=== PATIENT | male | born 1945 | race Caucasian/White ===

== ENCOUNTER 2017-09-07 09:07 | Day surgery (SDC) | payer MEDICARE, OTHER ==
[~2017-09-07 09:07] MED LIST: DIPHENHYDRAMINE HCL 50 MG/ML VIAL ONE; EPINEPHRINE INJ 1 MG/10 ML DISP.SYRIN ONE; FLUMAZENIL INJ 0.5 MG/5 ML VIAL ONE; GLUCAGON,HUMAN RECOMB 1 MG INJ ONE; NALOXONE HCL INJ/PF 0.4 MG/1 ML SDV ONE; ONDANSETRON HCL INJ/PF 4 MG/2 ML SDV ONE
[2017-09-07] MEDS: MIDAZOLAM 2 MG/2 ML INJ ONE ×6 (10:21→10:49)
[2017-09-07] MEDS: FENTANYL CITRATE INJ/PF 100 MCG/2 ML AMPUL ONE ×3 (10:23→10:40)
--- NOTE | 2017-09-07 11:04 | Discharge Summary ---
Discharge Summary (SDC) - Discharge Final Diagnosis: Normal colonoscopy Date of Surgery: 09/07/17 Discharge Date: 09/07/17 Condition: Good Treatment or Instructions: [facility] [place] [id number] POST ENDOSCOPY DISCHARGE INSTRUCTIONS 1. Diet: Start clear liquids that a regular diet as tolerated. 2. Resume all preoperative medications. All oral anticoagulants and aspirins can be resumed 24 hours after procedure. 3. If a polypectomy was performed some bleeding per rectum may occur. This should stop within 3 days. If not, please contact the office. 4. If you had a colonoscopy you may experience some bloating and delayed return of normal bowel function for several days, your regular bowel movement pattern should resume within a week. 5. Please contact [facility] at to make an appointment with Dr. Pop for 1 to 3 weeks following procedure. 6. If you have any questions or concerns regarding your care,treatment plan or follow up, please contact our office. 7. Per clinical guidelines we recommend you undergo a repeat colonoscopy in 10 years. Referrals: YAHIR GARCIA MD [Primary Care Provider] - Discharge Diet: As Tolerated Discharge Activity: Activity As Tolerated Home Care Assistance: None Needed Report the Following to Your Physician Immediately: Shortness of Breath, Increase in Pain, Fever over 101 Degrees
--- NOTE | 2017-09-07 11:06 | Operative Report ---
Operative Report DATE OF SURGERY: 09/07/17 PREOPERATIVE DIAGNOSIS: History of heme positive stool POSTOPERATIVE DIAGNOSIS: Normal: OPERATION: Total colonoscopy to cecum with photodocumentation SURGEON: PAT VAZQUEZ ANESTHESIA: Moderate Sedation TISSUE REMOVED OR ALTERED: None COMPLICATIONS: None ESTIMATED BLOOD LOSS: None INTRAOPERATIVE FINDINGS: See below PROCEDURE: Obtaining informed consent the patient was taken from the preoperative holding area to the main endoscopy suite where monitoring devices were attached to the patient. Plan and surgical timeout were conducted The patient was placed in the left lateral decubitus position with knees to chest. A perianal examination was performed. There was no visible or palpable anorectal pathology. Sphincter tone was felt to be normal. The flexible adult colonoscope was advanced through the anal rectal canal, all the way to the cecum. Visualization of the cecum was achieved and the ileocecal valve, the appendiceal orifice and transillumination of the anterior abdominal wall. This was an excellent study on the well-prepped bowel. The colonoscope was withdrawn slowly and methodically checked and the mucosa carefully. There was no evidence of tumor, stricture, bleeding or polyp. There was no evidence of diverticuloses. The scope was slowly withdrawn through the anal rectal canal. Complete visualization of the rectum was achieved with photodocumentation. The scope was withdrawn to the patient's anus. The patient tolerated the procedure well and was taken to the recovery area in stable condition. Screening guidelines, patient be an appropriate candidate for follow-up colonoscopy in 10 years, or sooner if symptoms develop.
[2017-09-07 12:41] VITALS: BP 121/80
== END 2017-09-07 12:10 | disposition home or self-care (01) ==
LOC: END 09:07
PROVIDERS: ATTEND Surgery
DX: Z12.11 Encounter for screening for malignant neoplasm of colon (principal); Z09 Encounter for follow-up examination after completed treatment for conditions other than malignant neoplasm; Z87.19 Personal history of other diseases of the digestive system; R19.5 Other fecal abnormalities; K62.4 Stenosis of anus and rectum; I10 Essential (primary) hypertension; I49.3 Ventricular premature depolarization; Z88.2 Allergy status to sulfonamides; Z79.899 Other long term (current) drug therapy; Z79.82 Long term (current) use of aspirin
CPT/HCPCS: G0121; J2250; J3010; J0171; J1200; J1610; J2310; J2405; J3490

== ENCOUNTER 2020-03-01 09:53 | Inpatient (IN) | payer MEDICARE, OTHER ==
[2020-03-01] MEDS ORDERED: NORMAL SALINE 1000 ML 1,000 ML IV ONE (10:20)
--- NOTE | 2020-03-01 10:25 | ER Document Report ---
ED Medical Screen (RME) - General Chief Complaint: General Weakness Stated Complaint: WEAKNESS,SHORT OF BREATH,DARK STOOLS Time Seen by Provider: 03/01/20 10:20 Primary Care Provider: YAHIR GARCIA MD [Primary Care Provider] - Follow up as needed TRAVEL OUTSIDE OF THE [place] IN LAST 30 DAYS: No - HPI Notes: 03/01/20 10:23 74-year-old male with history of mitral regurg presents to ED for evaluation of increased week rectal bleeding. Notes dark diarrhea. States that he has pain to the left lower abdomen. Reports that he has seen Dr. Johns in the past and is supposed to have a colonoscopy moving forward. He denies any fever or chills. Denies history of diverticulitis. States that he has felt increasingly weak and short of breath with ambulation. Denies lower extremity swelling. Notes that his mitral regurg has been stable. Denies other complaints. - Related Data Allergies/Adverse Reactions: Sulfa (Sulfonamide Antibiotics) Allergy (Mild, Verified 09/07/17 09:21) Rash Past Medical History - Past Medical History Cardiac Medical History: Reports: Hx Hypertension - MILD- ON LISINOPRIL Denies: Hx Atrial Fibrillation, Hx Congestive Heart Failure, Hx Coronary Artery Disease, Hx Heart Attack, Hx Hypercholesterolemia, Hx Peripheral Vascular Disease, Hx Heart Murmur Pulmonary Medical History: Denies: Hx Asthma, Hx Bronchitis, Hx COPD, Hx Pneumonia Neurological Medical History: Denies: Hx Cerebrovascular Accident, Hx Seizures Renal/ Medical History: Reports: Hx Kidney Stones - 2008 denies surgical intervention. Denies: Hx Benign Prostatic Hyperplasia, Hx End Stage Renal Disease, Hx Peritoneal Dialysis Musculoskeltal Medical History: Reports Hx Arthritis - HANDS, SPINE, Denies Hx Fibromyalgia, Denies Hx Muscular Dystrophy Psychiatric Medical History: Denies: Hx Bipolar Disorder, Hx Depression, Hx Post Traumatic Stress Disorder, Hx Schizophrenia Traumatic Medical History: Denies: Hx Fractures Past Surgical History: Reports: Hx Herniorrhaphy - ventral, Hx Tonsillectomy. Denies: Hx Appendectomy, Hx Bowel Surgery, Hx Cholecystectomy, Hx Coronary Artery Bypass Graft, Hx Gastric Bypass Surgery, Hx Pacemaker - Immunizations Hx Diphtheria, Pertussis, Tetanus Vaccination: Yes - June 2006 Physical Exam - Vital signs Vitals: Temp Pulse Resp BP Pulse Ox 97.7 F 100 20 107/79 99 03/01/20 10:04 03/01/20 10:04 03/01/20 10:04 03/01/20 10:04 03/01/20 10:04 General: No acute distress. Alert and oriented x3. Sitting comfortably in a stretcher. Skin: Intact without any jaundice, or erythema. Warm and dry. Pale. Neck: Supple with no lymphadenopathy. Full range of motion. Heart: regular rate with murmur to lower mitral region. Lungs: Clear to auscultation bilaterally. No wheezes, rhonchi, rales. Equal chest expansion. No retractions. Abdomen: Soft, tender to left lower abdomen, nondistended. Positive bowel sounds in all 4 quadrants. No hepatosplenomegaly. No masses. No CVA tenderness bilaterally. Neuro: GCS 15. Moving all extremities without discomfort. Extremities: No calf tenderness or edema. No cyanosis or clubbing. Radial and pedal pulses 2+ bilaterally. Brisk capillary refill. Psych: Mood and affect appropriate. Course - Vital Signs Vital signs: Temp Pulse Resp BP Pulse Ox 97.7 F 100 20 107/79 99 03/01/20 10:04 03/01/20 10:04 03/01/20 10:04 03/01/20 10:04 03/01/20 10:04 Doctor's Discharge - Discharge Referrals: YAHIR GARCIA MD [Primary Care Provider] - Follow up as needed
--- NOTE | 2020-03-01 11:41 | ER Document Report ---
Entered by JASBIR LIN SCRIBE 03/01/20 1052 Acting as scribe for:PAULINA SAHA MD ED General - General Chief Complaint: General Weakness Stated Complaint: WEAKNESS,SHORT OF BREATH,DARK STOOLS Time Seen by Provider: 03/01/20 10:20 Information source: Patient Notes: This 74-year-old male patient presents to the emergency department today with complaints of blood in his stool for the past six days. Monday through Monday he had diarrhea and bright red blood, the diarrhea is now gone but he has noticed that his stool is black in color. He feels generally weak and gets dyspneic on exertion. He states he is scheduled to have an endoscopy and colonoscopy tomorrow but he "does not think he can wait that long". TRAVEL OUTSIDE OF THE [place] IN LAST 30 DAYS: No - Related Data Allergies/Adverse Reactions: Sulfa (Sulfonamide Antibiotics) Allergy (Mild, Verified 09/07/17 09:21) Rash Past Medical History - General Information source: Patient - Social History Smoking Status: Never Smoker Cigarette use (# per day): No Frequency of alcohol use: None Drug Abuse: None Lives with: Family Family History: Reviewed & Not Pertinent - Past Medical History Cardiac Medical History: Reports: Hx Hypertension - MILD- ON LISINOPRIL Renal/ Medical History: Reports: Hx Kidney Stones - 2008 denies surgical intervention Musculoskeletal Medical History: Reports Hx Arthritis - HANDS, SPINE Past Surgical History: Reports: Hx Herniorrhaphy - ventral x2, Hx Neurologic Surgery - ACF, Hx Orthopedic Surgery - bilateral total knee replacement, Hx Tonsillectomy - Immunizations Hx Diphtheria, Pertussis, Tetanus Vaccination: Yes - June 2006 Hx Pneumococcal Vaccination: 12/19/11 Review of Systems - Review of Systems Constitutional: See HPI, Weakness EENT: No symptoms reported Cardiovascular: No symptoms reported Respiratory: See HPI, Short of breath Gastrointestinal: See HPI, Blood streaked bowels, Black stools, Rectal bleeding Genitourinary: No symptoms reported Male Genitourinary: No symptoms reported Musculoskeletal: No symptoms reported Skin: No symptoms reported Hematologic/Lymphatic: No symptoms reported Neurological/Psychological: No symptoms reported -: Yes All other systems reviewed and negative Physical Exam - Vital signs Vitals: Temp Pulse Resp BP Pulse Ox 97.7 F 100 20 107/79 99 03/01/20 10:04 03/01/20 10:04 03/01/20 10:04 03/01/20 10:04 03/01/20 10:04 - Notes Notes: Physical Exam: General: Alert, pallor. HEENT: Normocephalic. Atraumatic. PERRL. Extraocular movements intact. Oropharynx clear. Pale conjunctiva. Neck: Supple. Non-tender. Respiratory: Mildly dyspneic. Clear and equal breath sounds bilaterally. Cardiovascular: Borderline tachycardia, regular rhythm. Abdominal: Normal Inspection. Non-tender. No distension. Normal Bowel Sounds. Back: No gross abnormalities. Extremities: Moves all four extremities. Upper extremities: Normal inspection. Normal ROM. Pale nailbeds. Lower extremities: Normal inspection. No edema. Normal ROM. Neurological: Normal cognition. AAOx4. Normal speech. Psychological: Normal affect. Normal Mood. Skin: Warm. Dry. Pallor. Course - Re-evaluation Re-evalutation: 03/01/20 12:16 Patient's hemoglobin is 8.3, I discussed the case with Dr. Pop who is concerned the patient likely has a malignancy. He requests to have the hospitalist service admit the patient and consult him. - Vital Signs Vital signs: Temp Pulse Resp BP Pulse Ox 97.7 F 100 16 110/72 100 03/01/20 10:04 03/01/20 10:04 03/01/20 14:00 03/01/20 13:07 03/01/20 13:06 - Laboratory Results Result Diagrams: 03/01/20 10:54 03/01/20 10:54 Laboratory Results Interpreted: 03/01/20 03/01/20 03/01/20 10:54 10:54 10:54 RBC 2.48 L Hgb 8.3 L Hct 23.8 L Sodium 134.9 L BUN 27 H Creatine Kinase 31 L Total Protein 6.1 L Urine Blood MODERATE H Urine Ascorbic Acid 40 H Critical Laboratory Results Reviewed: Yes Attending or Supervising Physician who Reviewed Labs: PAULINA SAHA - Hemoglobin 8.3 - Radiology Results Critical Radiology Results Reviewed: No Critical Results - EKG Interpretation by Me EKG shows normal: Sinus rhythm, [place], Intervals, QRS Complexes, ST-T Waves Rate: Normal - 87 Rhythm: NSR Discharge - Discharge Clinical Impression: GI bleed Qualifiers: GI bleed type/associated pathology: melena Qualified Code(s): K92.1 - Melena Anemia Qualifiers: Anemia type: unspecified type Qualified Code(s): D64.9 - Anemia, unspecified Disposition: ADMITTED INPATIENT Admitting Provider: Josefina (Hospitalist) - Nerissa Ross will see the patient and write orders. Unit Admitted: Medical Floor I personally performed the services described in the documentation, reviewed and edited the documentation which was dictated to the scribe in my presence, and it accurately records my words and actions.
[2020-03-01 11:43] LABS: ABSOLUTE LYMPHOCYTES (AUTO) 1.9 10^3/uL (0.5-4.7); ABSOLUTE MONOCYTES (AUTO) 0.8 10^3/uL (0.1-1.4); ABSOLUTE NEUT (AUTO) 6.3 10^3/uL (1.7-8.2); BASOPHILS % (AUTO) 0.3 % (0-2); EOSINOPHILS % (AUTO) 0.4 % (0-6); HEMATOCRIT 23.8 % (37.9-51.0); HEMOGLOBIN 8.3 g/dL (13.5-17.0); LYMPHOCYTES % (AUTO) 20.5 % (13-45); MEAN CORPUSCULAR HEMOGLOBIN 33.3 pg (27.0-33.4); MEAN CORPUSCULAR HGB CONC 34.7 g/dL (32.0-36.0); MEAN CORPUSCULAR VOLUME 96 fl (80-97); MONOCYTES % (AUTO) 9.4 % (3-13); PLATELET COUNT 430 10^3/uL (150-450); RED BLOOD COUNT 2.48 10^6/uL (4.35-5.55); SEGMENTED NEUTROPHILS % (AUTO) 69.4 % (42-78); TOTAL CELLS COUNTED % (AUTO) 100 %
[2020-03-01 11:49] LABS: PROTHROMBIN TIME 13.4 SEC (11.4-15.4)
[2020-03-01 11:50] LABS: ALBUMIN 3.6 g/dL (3.5-5.0); ALKALINE PHOSPHATASE 39 U/L (38-126); ANION GAP 7 (5-19); APPEARANCE,URINE SLIGHTLY-CLOUDY; ASPARTATE AMINO TRANSFERASE 27 U/L (17-59); BILIRUBIN,TOTAL 0.3 mg/dL (0.2-1.3); BILIRUBIN,URINE NEGATIVE (NEGATIVE); BLOOD UREA NITROGEN 27 mg/dL (7-20); CALCIUM 9.8 mg/dL (8.4-10.2); CARBON DIOXIDE 24 mmol/L (22-30); CHLORIDE 104 mmol/L (98-107); COLOR,URINE YELLOW; CREATINE KINASE 31 U/L (55-170); GLUCOSE 98 mg/dL (75-110); GLUCOSE, URINE NEGATIVE (NEGATIVE); KETONES,URINE NEGATIVE (NEGATIVE); LEUKOCYTE ESTERASE,URINE NEGATIVE (NEGATIVE); NITRITE,URINE NEGATIVE (NEGATIVE); POTASSIUM 3.9 mmol/L (3.6-5.0); PROTEIN,URINE NEGATIVE (NEGATIVE); TOTAL PROTEIN 6.1 g/dL (6.3-8.2); URINE SPECIFIC GRAVITY 1.017; UROBILINOGEN,URINE NEGATIVE mg/dL (<2.0)
[2020-03-01 12:01] LABS: CREATINE KINASE MB 2.34 ng/mL (<4.55); TROPONIN I < 0.012 ng/mL
--- NOTE | 2020-03-01 12:42 | RADIOLOGY REPORT (SQ) ---
EXAM DESCRIPTION: CHEST SINGLE VIEW IMAGES COMPLETED DATE/TIME: 03/01/2020 10:31 am REASON FOR STUDY: pneumonia COMPARISON: 2013 NUMBER OF VIEWS: One view. TECHNIQUE: Single frontal radiographic view of the chest acquired. LIMITATIONS: None. FINDINGS: LUNGS AND PLEURA: No opacities, masses or pneumothorax. No pleural effusion. MEDIASTINUM AND HILAR STRUCTURES: No masses. Contour normal. HEART AND VASCULAR STRUCTURES: Heart normal in size. Normal vasculature. BONES: No acute findings. HARDWARE: None in the chest. OTHER: No other significant finding. IMPRESSION: NO SIGNIFICANT RADIOGRAPHIC FINDING IN THE CHEST. TECHNICAL DOCUMENTATION: JOB ID: [id number] 2010 [employer]- All Rights Reserved Reading location - IP/workstation name: [email or web address]
[2020-03-01] MEDS ORDERED: DEXTROSE 50%-WATER 25 GM/50 ML DISP.SYRIN IV PRN ×4 (13:57→14:29)
[2020-03-01] MEDS ORDERED: GLUCAGON,HUMAN RECOMB 1 MG INJ SUBCUT PRN ×2 (13:57→14:29)
[2020-03-01] MEDS ORDERED: ACETAMINOPHEN 325 MG TABLET PO PRN (13:57)
[2020-03-01] MEDS ORDERED: MAG HYDROX/AL HYDROX/SIMETH SUSP 30 ML UDCUP PO PRN (13:57)
[2020-03-01] MEDS ORDERED: DEXTROSE 40% GEL 15 GM TUBE PO PRN ×4 (13:57→14:29)
--- NOTE | 2020-03-01 14:34 | PDOC H&P ---
History of Present Illness Admission Date/PCP: 03/01/20 12:43 YAHIR GARCIA MD Patient complains of: Melena History of Present Illness: SHARITA AARON III is a 74 year old male with a past medical history significant for hypertension, mitral valve regurgitation/murmur, and anxiety. He presented to the emergency department today with a complaint of 6 days of melena. Patient reports he has had intermittent left lower quadrant pain; worsens with activity (especially bending over) and not exacerbated by p.o. intake. He does admit to mild anorexia and a 4-5 pound weight loss over the last 1 to 2 weeks. He denies fever, chills, nausea, vomiting, diarrhea, and constipation. Evaluation in the emergency department revealed stable vital signs, anemia (Hgb 8.3), nml PT/INR, unremarkable chemistry, and urinalysis notable for hematuria. Rapid COVID screening is negative. CXR is benign. EKG shows NSR w/ ST segment changes. CT ABD/Pelvis pending. He was provided a 1 L NS bolus and referred to the hospitalist service for further evaluation and management w/ Surgery consulting. Past Medical History Cardiac Medical History: Reports: Hypertension, Heart Murmur Denies: Congestive Heart Failure, Coronary Artery Disease, Myocardial Infarction, Hyperlipidema Pulmonary Medical History: Reports: None EENT Medical History: Reports: None Neurological Medical History: Denies: Ischemic CVA, Seizures Endocrine Medical History: Reports: None Renal/ Medical History: Reports: None Malignancy Medical History: Reports: None GI Medical History: Reports: None Musculoskeltal Medical History: Reports: Arthritis Denies: Fibromyalgia Skin Medical History: Reports: None Psychiatric Medical History: Reports: General Anxiety Disorder Denies: Depression Traumatic Medical History: Reports: None Hematology: Denies: Anemia Infectious Medical History: Reports: None Past Surgical History Past Surgical History: Reports: Herniorrhaphy - ventral x2, Orthopedic Surgery - bilateral total knee replacement, Tonsillectomy Denies: Appendectomy, Cholecystectomy, Coronary Artery Bypass Graft, Gastric Bypass Surgery, Pacemaker Social History Information Source: Patient Lives with: Family Smoking Status: Never Smoker Electronic Cigarette use?: No Frequency of Alcohol Use: Rare Hx Recreational Drug Use: No Hx Prescription Drug Abuse: No - Advance Directive Resuscitation Status: Full Code Family History Family History: Reviewed & Not Pertinent Parental Family History Reviewed: Yes Children Family History Reviewed: Yes Sibling(s) Family History Reviewed.: Yes Medication/Allergy Home Medications: Acetaminophen [Tylenol Arthritis 650 mg Tablet] 1 tab PO PRN PRN 09/19/13 Ascorbic Acid [Vitamin C 500 mg Tablet] 2 tab PO DAILY 09/19/13 Aspirin [Ecotrin 81 mg EC Tablet] 1 tab PO DAILY 09/19/13 Cinnamon Bark [Cinnamon Bark 500 mg Capsule] 2 cap PO DAILY 09/19/13 Lisinopril 1 tab PO DAILY 09/19/13 Multivitamin [Daily Vitamin] 1 tab PO DAILY 09/19/13 Allergies/Adverse Reactions: Sulfa (Sulfonamide Antibiotics) Allergy (Mild, Verified 09/07/17 09:21) Rash Review of Systems Constitutional: PRESENT: anorexia, fatigue, headache(s), weakness. ABSENT: chills, fever(s), weight gain, weight loss Eyes: ABSENT: visual disturbances Ears: ABSENT: hearing changes Cardiovascular: ABSENT: chest pain, dyspnea on exertion, edema, orthropnea, palpitations Respiratory: PRESENT: dyspnea. ABSENT: cough, hemoptysis Gastrointestinal: PRESENT: abdominal pain - LLQ, hematochezia, melena. ABSENT: constipation, diarrhea, hematemesis, nausea, vomiting Genitourinary: ABSENT: dysuria, hematuria Musculoskeletal: ABSENT: joint swelling Integumentary: ABSENT: rash, wounds Neurological: ABSENT: abnormal gait, abnormal speech, confusion, dizziness, focal weakness, syncope Psychiatric: ABSENT: anxiety, depression, homidical ideation, suicidal ideation Endocrine: ABSENT: cold intolerance, heat intolerance, polydipsia, polyuria Hematologic/Lymphatic: ABSENT: easy bleeding, easy bruising Physical Exam Vital Signs: Temp Pulse Resp BP Pulse Ox 97.7 F 100 13 110/72 100 03/01/20 10:04 03/01/20 10:04 03/01/20 13:07 03/01/20 13:07 03/01/20 13:06 Intake & Output 02/29/20 03/01/20 03/02/20 06:59 06:59 06:59 Intake Total 1000 Balance 1000 Weight 81.5 kg General appearance: PRESENT: no acute distress, cooperative, well-developed, well-nourished Head exam: PRESENT: atraumatic, normocephalic Eye exam: PRESENT: conjunctiva pink, EOMI, PERRLA. ABSENT: scleral icterus Mouth exam: PRESENT: moist, tongue midline Respiratory exam: PRESENT: clear to auscultation dav, symmetrical, unlabored, other - Room air. ABSENT: rales, rhonchi, wheezes Cardiovascular exam: PRESENT: RRR, +S1, +S2, systolic murmur. ABSENT: diastolic murmur, rubs Pulses: PRESENT: normal dorsalis pedis pul Vascular exam: PRESENT: normal capillary refill GI/Abdominal exam: PRESENT: normal bowel sounds, soft. ABSENT: distended, guarding, mass, organolmegaly, rebound, tenderness Rectal exam: PRESENT: deferred Extremities exam: PRESENT: full ROM. ABSENT: calf tenderness, clubbing, pedal edema Neurological exam: PRESENT: alert, awake, oriented to person, oriented to place, oriented to time, oriented to situation, CN II-XII grossly intact. ABSENT: motor sensory deficit Psychiatric exam: PRESENT: anxious, appropriate affect. ABSENT: homicidal ideation, suicidal ideation Skin exam: PRESENT: dry, intact, pallor, warm. ABSENT: cyanosis, rash Results Laboratory Results: 03/01/20 10:54 03/01/20 10:54 03/01/20 03/01/20 03/01/20 10:54 10:54 10:54 WBC 9.0 RBC 2.48 L Hgb 8.3 L Hct 23.8 L MCV 96 MCH 33.3 MCHC 34.7 RDW 13.0 Plt Count 430 Seg Neutrophils % 69.4 Sodium 134.9 L Potassium 3.9 Chloride 104 Carbon Dioxide 24 Anion Gap 7 BUN 27 H Creatinine 0.98 Est GFR ( Amer) > 60 Glucose 98 Calcium 9.8 Total Bilirubin 0.3 AST 27 Alkaline Phosphatase 39 Total Protein 6.1 L Albumin 3.6 Lipase 123.7 Urine Color Urine Appearance Urine pH Ur Specific [place] Urine Protein Urine Glucose (UA) Urine Ketones Urine Blood Urine Nitrite Ur Leukocyte Esterase Urine WBC (Auto) Urine RBC (Auto) Blood Type O POSITIVE Antibody Screen NEGATIVE 03/01/20 10:54 WBC RBC Hgb Hct MCV MCH MCHC RDW Plt Count Seg Neutrophils % Sodium Potassium Chloride Carbon Dioxide Anion Gap BUN Creatinine Est GFR ( Amer) Glucose Calcium Total Bilirubin AST Alkaline Phosphatase Total Protein Albumin Lipase Urine Color YELLOW Urine Appearance SLIGHTLY-CLOUDY Urine pH 5.0 Ur Specific [place] 1.017 Urine Protein NEGATIVE Urine Glucose (UA) NEGATIVE Urine Ketones NEGATIVE Urine Blood MODERATE H Urine Nitrite NEGATIVE Ur Leukocyte Esterase NEGATIVE Urine WBC (Auto) 4 Urine RBC (Auto) 67 Blood Type Antibody Screen 03/01/20 03/01/20 10:54 10:54 Creatine Kinase 31 L CK-MB (CK-2) 2.34 Troponin I < 0.012 Impressions: Chest X-Ray 03/01/20 10:21 IMPRESSION: NO SIGNIFICANT RADIOGRAPHIC FINDING IN THE CHEST. Assessment and Plan - Diagnosis (1) GI bleed Qualifiers: GI bleed type/associated pathology: melena Qualified Code(s): K92.1 - Melen a Is this a current diagnosis for this admission?: Yes Plan: Hemoglobin 8.3. Prior lab from 2013 showed hemoglobin of 9.5. Patient is not aware of history of chronic anemia. Occult stool pending. CT abdomen/pelvis pending. Admit to the medical floor. Hold aspirin. Protonix twice daily. Clear liquids; npo after midnight. Surgery is consulted. (2) Anemia Qualifiers: Anemia type: unspecified type Qualified Code(s): D64.9 - Anemia, unspecified Is this a current diagnosis for this admission?: Yes Plan: Likely secondary to GI bleeding. Patient reports combination of hematochezia and melena over the last 6 days. Now with generalized weakness, fatigue, occasional palpitations, and dyspnea. Hemoglobin 8.3. Prior lab from 2013 showed hemoglobin of 9.5. Patient is not aware of history of chronic anemia. Occult stool pending. CT abdomen/pelvis pending. Anemia panel in AM to check for underlying chronic anemia. Follow up CBC; transfuse for <7 (3) HTN (hypertension) Qualifiers: Hypertension type: essential hypertension Qualified Code(s): I10 - Essential (primary) hypertension Is this a current diagnosis for this admission?: Yes Plan: Continue home dose lisinopril - Time Time Spent with patient: 35 or more minutes Medications reviewed and adjusted accordingly: Yes Anticipated Discharge Disposition: Home, Self Care Anticipated Discharge Timeframe: within 48 hours
--- NOTE | 2020-03-01 14:36 | PDOC CONSULTATION ---
Consultation Consult Date: 03/01/20 Attending physician:: ADINA GUTIERRES Provider Consulted: PAT POP Consult reason:: Anemia; gastrointestinal bleeding History of Present Illness Admission Date/PCP: 03/01/20 12:43 YAHIR GARCIA MD History of Present Illness: SHARITA AARON III is a 74 year old male Who presents emergency department via ground rescue complaining of weakness, shortness of breath, malaise, fatigue, and increased frequency of dark bloody stools. Patient was seen by Dr. Pop 48 hours ago at [facility], with some of the above symptoms, but less severe, and was set up for outpatient upper and lower endoscopy. The patient is now being admitted to the hospitalist service for the resuscitation, possible blood transfusion, and CT scan imaging of the abdomen. He was consulted for diagnostic endoscopy. Patient is 4 and half years status post colonoscopy by Dr. Pop without any pathologic findings. Of note patient has a history of anemia of unclear etiology. Past Medical History Cardiac Medical History: Reports: Hypertension, Heart Murmur Denies: Atrial Fibrillation, Congestive Heart Failure, Coronary Artery Disease, Myocardial Infarction, Hyperlipidema, Peripheral Vascular Disease Pulmonary Medical History: Reports: None Denies: Asthma, Bronchitis, Chronic Obstructive Pulmonary Disease (COPD), Pneumonia EENT Medical History: Reports: None Neurological Medical History: Denies: Ischemic CVA, Seizures Endocrine Medical History: Reports: None Renal/ Medical History: Reports: None Denies: End Stage Renal Disease Malignancy Medical History: Reports: None GI Medical History: Reports: None Musculoskeltal Medical History: Reports: Arthritis Denies: Fibromyalgia Skin Medical History: Reports: None Psychiatric Medical History: Reports: General Anxiety Disorder Denies: Bipolar Disorder, Depression, Post Traumatic Stress Disorder Traumatic Medical History: Reports: None Hematology: Denies: Anemia Infectious Medical History: Reports: None Past Surgical History Past Surgical History: Reports: Herniorrhaphy - ventral x2, Orthopedic Surgery - bilateral total knee replacement, Tonsillectomy, Other - Spigelian hernia repair x2 left lower quadrant Denies: Appendectomy, Cholecystectomy, Coronary Artery Bypass Graft, Gastric Bypass Surgery, Pacemaker Social History Information Source: Patient Lives with: Family Smoking Status: Never Smoker Electronic Cigarette use?: No Frequency of Alcohol Use: Rare Hx Recreational Drug Use: No Hx Prescription Drug Abuse: No - Advance Directive Resuscitation Status: Full Code Family History Family History: None, Reviewed & Not Pertinent Parental Family History Reviewed: No Children Family History Reviewed: No Sibling(s) Family History Reviewed.: No Medication/Allergy Home Medications: Acetaminophen [Tylenol Arthritis 650 mg Tablet] 1 tab PO PRN PRN 09/19/13 Ascorbic Acid [Vitamin C 500 mg Tablet] 2 tab PO DAILY 09/19/13 Aspirin [Ecotrin 81 mg EC Tablet] 1 tab PO DAILY 09/19/13 Cinnamon Bark [Cinnamon Bark 500 mg Capsule] 2 cap PO DAILY 09/19/13 Lisinopril 1 tab PO DAILY 09/19/13 Multivitamin [Daily Vitamin] 1 tab PO DAILY 09/19/13 Allergies/Adverse Reactions: Sulfa (Sulfonamide Antibiotics) Allergy (Mild, Verified 09/07/17 09:21) Rash Review of Systems ROS unobtainable: Other - No review of systems was obtained to day Physical Exam Vital Signs: Temp Pulse Resp BP Pulse Ox 97.7 F 100 13 110/72 100 03/01/20 10:04 03/01/20 10:04 03/01/20 13:07 03/01/20 13:07 03/01/20 13:06 Intake & Output 02/29/20 03/01/20 03/02/20 06:59 06:59 06:59 Intake Total 1000 Balance 1000 Weight 81.5 kg General appearance: PRESENT: other - A physical examination was not performed today because the patient was positioned down the high Covid volume unit in the emergency department. Results Laboratory Results: 03/01/20 10:54 03/01/20 10:54 03/01/20 03/01/20 03/01/20 10:54 10:54 10:54 WBC 9.0 RBC 2.48 L Hgb 8.3 L Hct 23.8 L MCV 96 MCH 33.3 MCHC 34.7 RDW 13.0 Plt Count 430 Seg Neutrophils % 69.4 Sodium 134.9 L Potassium 3.9 Chloride 104 Carbon Dioxide 24 Anion Gap 7 BUN 27 H Creatinine 0.98 Est GFR ( Amer) > 60 Glucose 98 Calcium 9.8 Total Bilirubin 0.3 AST 27 Alkaline Phosphatase 39 Total Protein 6.1 L Albumin 3.6 Lipase 123.7 Urine Color Urine Appearance Urine pH Ur Specific [place] Urine Protein Urine Glucose (UA) Urine Ketones Urine Blood Urine Nitrite Ur Leukocyte Esterase Urine WBC (Auto) Urine RBC (Auto) Blood Type O POSITIVE Antibody Screen NEGATIVE 03/01/20 10:54 WBC RBC Hgb Hct MCV MCH MCHC RDW Plt Count Seg Neutrophils % Sodium Potassium Chloride Carbon Dioxide Anion Gap BUN Creatinine Est GFR ( Amer) Glucose Calcium Total Bilirubin AST Alkaline Phosphatase Total Protein Albumin Lipase Urine Color YELLOW Urine Appearance SLIGHTLY-CLOUDY Urine pH 5.0 Ur Specific [place] 1.017 Urine Protein NEGATIVE Urine Glucose (UA) NEGATIVE Urine Ketones NEGATIVE Urine Blood MODERATE H Urine Nitrite NEGATIVE Ur Leukocyte Esterase NEGATIVE Urine WBC (Auto) 4 Urine RBC (Auto) 67 Blood Type Antibody Screen 03/01/20 03/01/20 10:54 10:54 Creatine Kinase 31 L CK-MB (CK-2) 2.34 Troponin I < 0.012 Impressions: Chest X-Ray 03/01/20 10:21 IMPRESSION: NO SIGNIFICANT RADIOGRAPHIC FINDING IN THE CHEST. Assessment & Plan - Diagnosis (1) GI bleed Qualifiers: GI bleed type/associated pathology: melena Qualified Code(s): K92.1 - Melena Is this a current diagnosis for this admission?: Yes Plan: Impression: Subacute GI bleed presenting with recurrent melena, anemia, weakness. Rule out occult gastrointestinal malignancy. Patient previously set up for outpatient endoscopy; will shift plan and offer upper and lower endoscopy during patient's hospitalization. Plan: 1. Covid status checked-negative 2. Await results of CT scan of abdomen and pelvis with oral contrast 3. We will set patient up for upper and lower endoscopy, March 02, with Dr. Serrano. We will start bowel prep today. (2) Left lower quadrant abdominal mass Is this a current diagnosis for this admission?: Yes Plan: Impression: Detected, confirmed on physical exam [address] Pop to be a subcutaneous mass consistent with lipoma versus recurrent hernia at the site of previous spigelion hernia repair (3) Anemia Qualifiers: Anemia type: unspecified type Qualified Code(s): D64.9 - Anemia, unspecified Is this a current diagnosis for this admission?: Yes (4) HTN (hypertension) Qualifiers: Hypertension type: essential hypertension Qualified Code(s): I10 - Essential (primary) hypertension Is this a current diagnosis for this admission?: Yes
[2020-03-01] MEDS ORDERED: PEG 3350/NA SULF,BICARB,CL/KCL 4000 ML PO ONE (16:00)
--- NOTE | 2020-03-01 16:06 | RADIOLOGY REPORT (SQ) ---
EXAM DESCRIPTION: CT ABD/PELVIS WITH IV ORAL IMAGES COMPLETED DATE/TIME: 03/01/2020 3:07 pm REASON FOR STUDY: GI bleed COMPARISON: None. TECHNIQUE: CT scan of the abdomen and pelvis performed with intravenous and oral contrast using vlad carrie scanning technique with dynamic intravenous contrast injection. Images reviewed with lung, soft t issue, and bone windows. Reconstructed coronal and sagittal MPR images reviewed. Delayed images for e valuation of the urinary system also acquired. All images stored on PACS. All CT scanners at this facility use dose modulation, iterative reconstruction, and/or weight based d osing when appropriate to reduce radiation dose to as low as reasonably achievable (ALARA). [facility]: Dose Right [facility]: CareDose [facility]: Dose Right [facility]: Teradose 4D [facility]: [employer] CONTRAST TYPE AND DOSE: contrast/concentration: Isovue 350.00 mmol/ml; Total Contrast Delivered: 93. 0 ml; Total Saline Delivered: 71.0 ml RENAL FUNCTION: GFR > 60. RADIATION DOSE: CT Rad equipment meets quality standard of care and radiation dose reduction techniq ues were employed. CTDIvol: 8.0 - 11.1 mGy. DLP: 1060 mGy-cm.. LIMITATIONS: No helpful clinical information provided. FINDINGS: LOWER CHEST: No significant findings. No nodules or infiltrates. LIVER: Normal size. No masses. No dilated ducts. SPLEEN: Normal size. No focal lesions. PANCREAS: No masses. No significant calcifications. No adjacent inflammation or peripancreatic fluid collections. Pancreatic duct not dilated. GALLBLADDER: No identified stones by CT criteria. No inflammatory changes to suggest cholecystitis. ADRENAL GLANDS: No significant masses or asymmetry. RIGHT KIDNEY AND URETER: No solid masses. No significant calcification. No hydronephrosis or hydroure ter. LEFT KIDNEY AND URETER: No significant hydronephrosis. There does appear to be a stone in the proxim al ureter just beyond the UPJ however. This measures close to 2 mm, see image 41/97. AORTA AND VESSELS: No aneurysm. No dissection. Renal arteries, SMA, celiac without stenosis. RETROPERITONEUM: No retroperitoneal adenopathy, hemorrhage or masses. BOWEL AND PERITONEAL CAVITY: No obstruction. No visualized masses. No free fluid. No inflammatory ch anges or thickening of bowel wall. APPENDIX: Normal. PELVIS: No significant masses. Normal bladder. No free fluid. ABDOMINAL WALL: No masses. No hernias. BONES: No significant or acute findings. OTHER: No other significant finding. IMPRESSION: 1. Tiny stone in the proximal left ureter without significant hydronephrosis suggested. 2. No gross bowel pathology demonstrated. TECHNICAL DOCUMENTATION: JOB ID: [id number] Quality ID # [id number]: Final reports with documentation of one or more dose reduction techniques (e.g., Au tomated exposure control, adjustment of the mA and/or kV according to patient size, use of iterative reconstruction technique) 2010 [employer]- All Rights Reserved Reading location - IP/workstation name: [email or web address]
[2020-03-01 17:21] LABS: HEMATOCRIT 19.3 % (37.9-51.0); MEAN CORPUSCULAR HEMOGLOBIN 33.3 pg (27.0-33.4); MEAN CORPUSCULAR HGB CONC 34.7 g/dL (32.0-36.0); MEAN CORPUSCULAR VOLUME 96 fl (80-97); PLATELET COUNT 342 10^3/uL (150-450); RED BLOOD COUNT 2.01 10^6/uL (4.35-5.55); RED CELL DISTRIBUTION WIDTH 12.7 % (11.5-14.0); WHITE BLOOD COUNT 10.3 10^3/uL (4.0-10.5)
[2020-03-01 17:23] LABS: HEMOGLOBIN 6.7 g/dL (13.5-17.0)
[2020-03-01] MEDS ORDERED: NORMAL SALINE 250 ML IV PRN ×2 (17:25)
[2020-03-01] MEDS: PANTOPRAZOLE SODIUM 40 MG VIAL IV SCH (22:09)
--- NOTE | 2020-03-02 00:14 | EKG REPORT ---
SEVERITY:- NORMAL ECG - SINUS RHYTHM : Confirmed by: Pedro Huston 02-Mar-2020 00:13:35
[2020-03-02] MEDS: ONDANSETRON HCL INJ/PF 4 MG/2 ML SDV IV PRN ×3 (00:41→23:50)
[2020-03-02] MEDS: RINGERS SOLUTION,LACTATED 1,000 ML IV PRN ×2 (00:42→21:33)
[2020-03-02 03:18] LABS: ABSOLUTE EOSINOPHILS # (AUTO) 0.1 10^3/uL (0.0-0.6); ABSOLUTE LYMPHOCYTES (AUTO) 3.7 10^3/uL (0.5-4.7); ABSOLUTE MONOCYTES (AUTO) 1.3 10^3/uL (0.1-1.4); BASOPHILS % (AUTO) 0.2 % (0-2); EOSINOPHILS % (AUTO) 0.4 % (0-6); HEMATOCRIT 26.7 % (37.9-51.0); LYMPHOCYTES % (AUTO) 24.6 % (13-45); MEAN CORPUSCULAR HGB CONC 34.3 g/dL (32.0-36.0); MEAN CORPUSCULAR VOLUME 93 fl (80-97); MONOCYTES % (AUTO) 8.8 % (3-13); PLATELET COUNT 328 10^3/uL (150-450); RED BLOOD COUNT 2.86 10^6/uL (4.35-5.55); RED CELL DISTRIBUTION WIDTH 13.6 % (11.5-14.0); TOTAL CELLS COUNTED % (AUTO) 100 %; WHITE BLOOD COUNT 15.2 10^3/uL (4.0-10.5)
[2020-03-02 03:19] LABS: HEMOGLOBIN 9.2 g/dL (13.5-17.0)
[2020-03-02 06:17] LABS: ABSOLUTE RETICS # 0.096 10^6/uL (0.028-0.122); HEMATOCRIT 22.4 % (37.9-51.0); MEAN CORPUSCULAR HEMOGLOBIN 32.1 pg (27.0-33.4); MEAN CORPUSCULAR HGB CONC 34.5 g/dL (32.0-36.0); MEAN CORPUSCULAR VOLUME 93 fl (80-97); PLATELET COUNT 274 10^3/uL (150-450); RED CELL DISTRIBUTION WIDTH 13.6 % (11.5-14.0); RETICULOCYTE COUNT (AUTO) 4.01 % (0.66-2.85); WHITE BLOOD COUNT 10.1 10^3/uL (4.0-10.5)
[2020-03-02 06:19] LABS: HEMOGLOBIN 7.7 g/dL (13.5-17.0)
[2020-03-02 06:42] LABS: ANION GAP 5 (5-19); BLOOD UREA NITROGEN 34 mg/dL (7-20); CALCIUM 8.5 mg/dL (8.4-10.2); CARBON DIOXIDE 21 mmol/L (22-30); CHLORIDE 108 mmol/L (98-107); GLUCOSE 95 mg/dL (75-110); IRON(TIBC) 45.4 ug/dL (49-181); POTASSIUM 4.2 mmol/L (3.6-5.0)
[2020-03-02] MEDS: PANTOPRAZOLE SODIUM 40 MG VIAL IV SCH ×2 (09:01→21:33)
[2020-03-02] MEDS: LISINOPRIL 10 MG TABLET PO SCH (09:01)
[2020-03-02] MEDS ORDERED: DEXAMETHASONE SOD PHOSPHATE INJ 4 MG/1 ML VIAL ONE (10:09)
[2020-03-02] MEDS ORDERED: ONDANSETRON HCL INJ/PF 4 MG/2 ML SDV ONE (10:09)
[2020-03-02] MEDS ORDERED: GLUCAGON,HUMAN RECOMB 1 MG INJ ONE (13:03)
[2020-03-02] MEDS ORDERED: EPINEPHRINE INJ 1 MG/10 ML DISP.SYRIN ONE (13:03)
[2020-03-02] MEDS ORDERED: NALOXONE HCL INJ/PF 0.4 MG/1 ML SDV ONE (13:03)
[2020-03-02 14:01] LABS: ABSOLUTE NEUT (AUTO) 8.5 10^3/uL (1.7-8.2); BASOPHILS % (AUTO) 0.4 % (0-2); EOSINOPHILS % (AUTO) 0.2 % (0-6); HEMOGLOBIN 8.2 g/dL (13.5-17.0); LYMPHOCYTES % (AUTO) 17.4 % (13-45); MEAN CORPUSCULAR HGB CONC 34.3 g/dL (32.0-36.0); MEAN CORPUSCULAR VOLUME 91 fl (80-97); MONOCYTES % (AUTO) 8.8 % (3-13); PLATELET COUNT 270 10^3/uL (150-450); RED BLOOD COUNT 2.65 10^6/uL (4.35-5.55); RED CELL DISTRIBUTION WIDTH 14.7 % (11.5-14.0); SEGMENTED NEUTROPHILS % (AUTO) 73.2 % (42-78); TOTAL CELLS COUNTED % (AUTO) 100 %; WHITE BLOOD COUNT 11.6 10^3/uL (4.0-10.5)
[2020-03-02] MEDS ORDERED: PROPOFOL INJ 200 MG/20 ML VIAL IV ONE (14:21)
[2020-03-02] MEDS ORDERED: FENTANYL CITRATE INJ/PF 100 MCG/2 ML AMPUL ONE ×2 (15:20→18:46)
[2020-03-02] MEDS ORDERED: CEFAZOLIN INJ 1 GM VIAL ONE (15:55)
[2020-03-02] MEDS ORDERED: METRONIDAZOLE 500 MG/NS RTU 500 MG/100 ML RTUPB IV ONE (15:57)
[2020-03-02] MEDS ORDERED: MEPERIDINE HCL/PF INJ 25 MG/1 ML DISP.SYRIN IV PRN (16:32)
[2020-03-02] MEDS ORDERED: PROMETHAZINE HCL INJ 25 MG/1 ML VIAL IV PRN ×2 (16:32)
[2020-03-02] MEDS ORDERED: FENTANYL CITRATE INJ/PF 100 MCG/2 ML AMPUL IV PRN ×3 (16:32)
[2020-03-02] MEDS ORDERED: DIPHENHYDRAMINE HCL 50 MG/ML VIAL IV PRN (16:32)
[2020-03-02] MEDS ORDERED: ONDANSETRON HCL INJ/PF 4 MG/2 ML SDV IV PRN (16:32)
[2020-03-02] MEDS ORDERED: MORPHINE SULFATE 10 MG/ML INJ IV PRN (16:32)
[2020-03-02] MEDS ORDERED: SUGAMMADEX SODIUM 200 MG/2 ML SDV IV ONE (16:56)
--- NOTE | 2020-03-02 17:15 | PDOC PROGRESS REPORT ---
Subjective Date:: 03/02/20 Subjective:: SHARITA AARON III is a 74 year old male with a past medical history significant for hypertension, mitral valve regurgitation/murmur, and anxiety who was admitted 03/01/2020 with acute blood loss anemia secondary to GI bleeding. Patient was seen on morning rounds. He is found resting in bed, comfortably, on room air. He reports continued fatigue but denies further episodes of dyspnea and palpitations. He does continue to have frequent, frankly bloody, bowel movements. He denies abdominal discomfort. Somewhat anxious about his planned colonoscopy today. Otherwise he has no questions or concerns at this time. He denies fever, chills, chest pain, palpitations, dyspnea, orthopnea, nausea and vomiting. No concerns per nursing. Reason For Visit: GI BLEED, ANEMIA Physical Exam Vital Signs: Temp Pulse Resp BP Pulse Ox 98.0 F 84 19 99/60 L 99 03/02/20 14:23 03/02/20 14:23 03/02/20 14:23 03/02/20 14:23 03/02/20 14:23 Intake & Output 03/01/20 03/02/20 03/03/20 06:59 06:59 06:59 Intake Total 4660 1300 Balance 4660 1300 Weight 75.1 kg General appearance: PRESENT: no acute distress, cooperative, well-developed, w ell-nourished Head exam: PRESENT: atraumatic, normocephalic Eye exam: PRESENT: conjunctiva pink, EOMI, PERRLA. ABSENT: scleral icterus Mouth exam: PRESENT: moist, tongue midline Respiratory exam: PRESENT: clear to auscultation dav, symmetrical, unlabored, other - room air. ABSENT: rales, rhonchi, wheezes Cardiovascular exam: PRESENT: RRR. ABSENT: diastolic murmur, rubs, systolic murmur Pulses: PRESENT: normal dorsalis pedis pul Vascular exam: PRESENT: normal capillary refill GI/Abdominal exam: PRESENT: normal bowel sounds, soft, tenderness - LLQ. ABSENT: distended, guarding, mass, organolmegaly, rebound Rectal exam: PRESENT: heme (+) stool Extremities exam: PRESENT: full ROM. ABSENT: calf tenderness, clubbing, pedal edema Musculoskeletal exam: PRESENT: ambulatory Neurological exam: PRESENT: alert, awake, oriented to person, oriented to place, oriented to time, oriented to situation, CN II-XII grossly intact. ABSENT: motor sensory deficit Psychiatric exam: PRESENT: anxious, appropriate affect. ABSENT: homicidal ideation, suicidal ideation Skin exam: PRESENT: dry, intact, pallor, warm. ABSENT: cyanosis, rash Results Laboratory Results: 03/02/20 13:47 03/02/20 06:00 03/01/20 03/01/20 03/01/20 10:54 16:55 21:10 WBC 10.3 RBC 2.01 L Hgb 6.7 L Hct 19.3 L MCV 96 MCH 33.3 MCHC 34.7 RDW 12.7 Plt Count 342 Seg Neutrophils % Retic Count (auto) Sodium Potassium Chloride Carbon Dioxide Anion Gap BUN Creatinine Est GFR ( Amer) Glucose Calcium Iron TIBC % Saturation Ferritin Vitamin B12 Folate Stool Occult Blood POSITIVE Blood Type O POSITIVE Antibody Screen NEGATIVE 03/02/20 03/02/20 03/02/20 02:48 06:00 06:00 WBC 15.2 H 10.1 RBC 2.86 L 2.40 L Hgb 9.2 L D 7.7 L Hct 26.7 L 22.4 L MCV 93 93 MCH 32.0 32.1 MCHC 34.3 34.5 RDW 13.6 13.6 Plt Count 328 274 Seg Neutrophils % 66.0 Retic Count (auto) 4.01 H Sodium 133.9 L Potassium 4.2 Chloride 108 H Carbon Dioxide 21 L Anion Gap 5 BUN 34 H Creatinine 0.81 Est GFR ( Amer) > 60 Glucose 95 Calcium 8.5 Iron 45.4 L TIBC 285 % Saturation 16 Ferritin 26.40 Vitamin B12 307.0 Folate 16.00 Stool Occult Blood Blood Type Antibody Screen 03/02/20 13:47 WBC 11.6 H RBC 2.65 L Hgb 8.2 L Hct 24.0 L MCV 91 MCH 31.0 MCHC 34.3 RDW 14.7 H Plt Count 270 Seg Neutrophils % 73.2 Retic Count (auto) Sodium Potassium Chloride Carbon Dioxide Anion Gap BUN Creatinine Est GFR ( Amer) Glucose Calcium Iron TIBC % Saturation Ferritin Vitamin B12 Folate Stool Occult Blood Blood Type Antibody Screen 03/01/20 03/01/20 03/01/20 10:54 10:54 13:21 Creatine Kinase 31 L CK-MB (CK-2) 2.34 Troponin I < 0.012 < 0.012 Impressions: Chest X-Ray 03/01/20 10:21 IMPRESSION: NO SIGNIFICANT RADIOGRAPHIC FINDING IN THE CHEST. Abdomen/Pelvis CT 03/01/20 15:00 IMPRESSION: 1. Tiny stone in the proximal left ureter without significant hydronephrosis suggested. 2. No gross bowel pathology demonstrated. Assessment and Plan - Diagnosis (1) GI bleed Qualifiers: GI bleed type/associated pathology: melena Qualified Code(s): K92.1 - Melena Is this a current diagnosis for this admission?: Yes Plan: Ladarius blood per rectum overnight. Occult stool positive. CT abdomen/pelvis is unremarkable. Admit to the medical floor. Hold aspirin. Protonix twice daily. NPO. Surgery is consulted; plan for EGD/Colonoscopy today. (2) Anemia Qualifiers: Anemia type: unspecified type Qualified Code(s): D64.9 - Anemia, unspecified Is this a current diagnosis for this admission?: Yes Plan: Hemoglobin 8.3-> 6.7-> 9.2-> 7.7-> 8.2 Prior lab from 2013 showed hemoglobin of 9.5. Patient is not aware of history of chronic anemia. Anemia panel shows mild iron deficiency. Occult stool positive; ladarius blood per rectum overnight. s/p 3 units PRBC Follow up CBC; transfuse for <8 (3) HTN (hypertension) Qualifiers: Hypertension type: essential hypertension Qualified Code(s): I10 - Essential (primary) hypertension Is this a current diagnosis for this admission?: Yes Plan: Continue home dose lisinopril - Time Time Spent with patient: 25-34 minutes Medications reviewed and adjusted accordingly: Yes Anticipated Discharge Disposition: Home, Self Care Anticipated Discharge Timeframe: within 48 hours
[2020-03-02] MEDS ORDERED: PHENYLEPHRINE HCL INJ/PF 10 MG/1 ML SDV ONE (18:15)
--- NOTE | 2020-03-02 18:32 | Operative Report ---
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 SURGEON: MIGUEL CASPER ANESTHESIA: GA TISSUE REMOVED OR ALTERED: colon, left, jejunum. COMPLICATIONS: Perforation of the sigmoid colon with colonoscopy ESTIMATED BLOOD LOSS: 100 cc PROCEDURE: This is a 74-year-old male with acute onset of gastrointestinal bleeding. Received 3 units of blood prior to coming to the operating for upper and lower endoscopy. He underwent a bowel prep last night. He was brought to the operating awake alert in stable condition placed on the operative table left lateral decubitus position and given IV sedation. Olympus gastroscope was passed into the posterior pharynx into the stomach within the stomach there was old blood that was noted adherent to the jorgensen of the stomach but there is no evidence of active ulceration. There was some nodularity at the angularis which was biopsied. We then intubated the pylorus noted no evidence of duodenal ulcer or proximal pyloric ulcer. We retroflexed the scope and noted really no evidence of a significant hiatal hernia as we withdrew the scope we examined the distal esophagus there was some mild gastritis but other than that there is no obvious evidence of active bleeding although there was old Blood within the stomach. Scope was then slowly withdrawn. Patient was then repositioned for colonoscopy as we inserted the Olympus colonoscope into the rectum there was a large amount of old melanotic blood and stool we were able to traverse the rectum into the sigmoid colon as we entered the sigmoid colon again there was a large amount of plaque tarry melena. Scope was slowly advanced under direct vision and reached a point where I noted that there was a slight resistance immediately noted then that we were in the peritoneum a small bowel was visualized. The scope was then therefore withdrawn. Patient was then repositioned for exploratory laparotomy he was placed in low lithotomy position the abdomen was prepped and draped. Midline incision was used from just above the umbilicus to just above the pubic symphysis dissection was carried down through subcutaneous tissue with Bovie cautery midline fascia was entered upon entering the midline fascia there was no immediate evidence other than the air of any soilage of the peritoneal cavity. I then took down the left colon along the white line of Toldt from the pelvic inlet to the splenic flexure. This allowed us to mobilize the left colon identified the both the left and right ureters. Upon further mobilization of the colon I finally identified a perforation at the descending: Sigmoid colon junction. It appeared that this patient had a previous mesh repair of abdominal wall hernia in the left lower quadrant and the colon had in fact incarcerated self within a small recurrent defect and was folded at 90 degrees and I suspect that with the perforation occurred. The scope perforated at that point of fixation. I mobilized the loop of colon that was adhesed to the old mesh with Bovie cautery and allow that to come down. Once that was down clearly identified the whole. I therefore mobilized the peritoneal reflection with Bovie cautery again identified both the left and right ureter ureter the proximal rectum was identified and the distal sigmoid colon was chosen as a point of transection. We mobilized the mesentery away with Bovie cautery and LigaSure device and then came across the distal sigmoid colon with 1 firing of the BRENDAN stapler with a blue load. I continued our mobilization of the mesentery with the LigaSure device dividing the inferior mesenteric artery. This made this mobilization continued up to the along the white line of Toldt peritoneal reflection to the splenic flexure where this was mobilized with Bovie cautery until we reached the mid transverse colon clearing the omentum off the anterior surface of the colon once this was accomplished we placed the pursestring suture on the proximal end of the distal transverse colon closed it and divided the colon at that point removing that section of left colon. The pursestring suture was then opened up the distal transverse colon was sized with sizers and easily excepted a 29 mm EEA anvil which was placed into it and the pursing suture was tied down. We then further mobilized the distal transverse colon where it easily came down into the pelvis and then we used the 29 mm EEA stapler passed in through the rectum and connected to the anvil and the distal transverse colon between the proximal rectum and the colon closed it fired creating a coloproctostomy. This was checked under water were able after being in inflated with air under pressure and no evidence of a leak could be identified however it was also suture reinforced with interrupted circularly placed 2-0 silk sutures in a Lembert fashion oversewing the staple line. Once this was completed we then turned attention to the ligament of Treitz at the point of ligament of Treitz just distal about 20 cm there was a a small bowel that was adhesed to the anterior abdominal wall as we gently mobilized off the small bowel it was just fixated there with inflammation and one when it was that he when it was released there was noted to be a perforated jejunal diverticulum it appeared to be bleeding as I released it from the anterior abdominal wall which could explain why there was a blood in the stomach as well as completely coating the colon and distal small bowel it appeared that this jejunal diverticulum had not only perforated but also is continued to bleed. I elected to resect this. I cleared the about 20 cm of the proximal jejunum of mesentery with the LigaSure device.. Then created a functional end-to-end anastomosis proximally distally to the perforated jejunal diverticulum this was done with the Endo BRENDAN stapler and we s tapled off the hole as well as that section of small bowel with 1 firing of the Endo BRENDAN stapler with a blue load. The specimen was removed which consisted about 20 cm of proximal jejunum. The staple line was oversewn and reinforced with interrupted 3-0 silk suture. The mesenteric defect was closed with [id number] 3-0 silk suture. Once this was completed we copiously irrigated the abdominal cavity and suctioned dry. After completely suctioned dry there is hemostasis noted to be intact we left a Jose Maria-Whitaker drain in the pelvis and brought out through stab in the l right lower quadrant. We then closed the midline fascia with a running double looped 0 Maxon suture closed the skin with standard skin clips. Estimated blood loss was less than 100 cc sponge needle counts were correct x2 patient was awakened in the operating transferred recovery in stable condition.
[2020-03-02] MEDS ORDERED: ACETAMINOPHEN 1,000 MG/100 ML RTUPB IV ONE ×2 (18:41→19:15)
[2020-03-02 18:44] LABS: HEMATOCRIT 23.4 % (37.9-51.0); MEAN CORPUSCULAR HEMOGLOBIN 31.6 pg (27.0-33.4); MEAN CORPUSCULAR HGB CONC 33.8 g/dL (32.0-36.0); MEAN CORPUSCULAR VOLUME 93 fl (80-97); PLATELET COUNT 307 10^3/uL (150-450); RED BLOOD COUNT 2.51 10^6/uL (4.35-5.55); WHITE BLOOD COUNT 13.4 10^3/uL (4.0-10.5)
[2020-03-02 18:53] LABS: HEMOGLOBIN 7.9 g/dL (13.5-17.0)
[2020-03-02 19:13] LABS: ALBUMIN 1.8 g/dL (3.5-5.0); ASPARTATE AMINO TRANSFERASE 19 U/L (17-59); BILIRUBIN,TOTAL 0.2 mg/dL (0.2-1.3); BLOOD UREA NITROGEN 41 mg/dL (7-20); CALCIUM 7.6 mg/dL (8.4-10.2); CARBON DIOXIDE 20 mmol/L (22-30); CHLORIDE 109 mmol/L (98-107); GLUCOSE 148 mg/dL (75-110); NEONATAL BILIRUBIN RESULT 0.2 mg/dL (0.1-1.1); POTASSIUM 4.2 mmol/L (3.6-5.0); TOTAL PROTEIN 3.4 g/dL (6.3-8.2)
[2020-03-02 19:15] LABS: ALKALINE PHOSPHATASE < 20 U/L (38-126)
[2020-03-02 19:27] LABS: ANION GAP 4 (5-19)
[2020-03-02] MEDS: MORPHINE SULFATE 10 MG/ML INJ IV PRN (22:20)
[2020-03-02 23:06] LABS: HEMATOCRIT 31.3 % (37.9-51.0); MEAN CORPUSCULAR HEMOGLOBIN 30.7 pg (27.0-33.4); MEAN CORPUSCULAR HGB CONC 33.2 g/dL (32.0-36.0); MEAN CORPUSCULAR VOLUME 93 fl (80-97); PLATELET COUNT 261 10^3/uL (150-450); RED BLOOD COUNT 3.37 10^6/uL (4.35-5.55); RED CELL DISTRIBUTION WIDTH 14.5 % (11.5-14.0); WHITE BLOOD COUNT 22.5 10^3/uL (4.0-10.5)
[2020-03-02 23:25] LABS: HEMOGLOBIN 10.4 g/dL (13.5-17.0)
[2020-03-02 23:30] LABS: ABSOLUTE LYMPHOCYTES# (MANUAL) 0.7 10^3/uL (0.5-4.7); ABSOLUTE MONOCYTES # (MANUAL) 1.1 10^3/uL (0.1-1.4); BAND NEUTROPHILS % (MANUAL) 5 % (3-5); BASOPHILS % (MANUAL) 0 % (0-2); EOSINOPHILS % (MANUAL) 0 % (0-6); LYMPHOCYTES % (MANUAL) 3 % (13-45); MONOCYTES % (MANUAL) 5 % (3-13); SEGMENTED NEUTROPHILS % (MAN) 87 % (42-78); TOTAL CELLS COUNTED 100
[2020-03-02 23:31] LABS: ANISOCYTOSIS SLIGHT; BURR CELLS SLIGHT; OVALOCYTES SLIGHT; PLATELET COMMENT ADEQUATE; POIKILOCYTOSIS SLIGHT; POLYCHROMASIA SLIGHT; TOXIC GRANULATION SLIGHT
[2020-03-03] MEDS: KETOROLAC TROMETHAMINE INJ/PF 30 MG/1 ML SDV IV PRN ×3 (00:12→14:43)
[2020-03-03] MEDS ORDERED: KETOROLAC TROMETHAMINE INJ/PF 30 MG/1 ML SDV ONE (00:12)
[2020-03-03] MEDS: MORPHINE SULFATE 10 MG/ML INJ IV PRN ×3 (05:24→19:54)
[2020-03-03 05:51] LABS: HEMATOCRIT 33.5 % (37.9-51.0); HEMOGLOBIN 11.1 g/dL (13.5-17.0); MEAN CORPUSCULAR HEMOGLOBIN 30.8 pg (27.0-33.4); MEAN CORPUSCULAR HGB CONC 33.2 g/dL (32.0-36.0); MEAN CORPUSCULAR VOLUME 93 fl (80-97); PLATELET COUNT 236 10^3/uL (150-450); RED BLOOD COUNT 3.61 10^6/uL (4.35-5.55); RED CELL DISTRIBUTION WIDTH 14.6 % (11.5-14.0); WHITE BLOOD COUNT 28.9 10^3/uL (4.0-10.5)
[2020-03-03 05:52] LABS: ANION GAP 10 (5-19); BLOOD UREA NITROGEN 49 mg/dL (7-20); CALCIUM 8.8 mg/dL (8.4-10.2); CARBON DIOXIDE 18 mmol/L (22-30); CHLORIDE 108 mmol/L (98-107); GLUCOSE 131 mg/dL (75-110); POTASSIUM 4.5 mmol/L (3.6-5.0)
[2020-03-03 06:16] LABS: ABSOLUTE LYMPHOCYTES# (MANUAL) 0.3 10^3/uL (0.5-4.7); ABSOLUTE MONOCYTES # (MANUAL) 2.3 10^3/uL (0.1-1.4); BAND NEUTROPHILS % (MANUAL) 5 % (3-5); BASOPHILS % (MANUAL) 0 % (0-2); EOSINOPHILS % (MANUAL) 0 % (0-6); LYMPHOCYTES % (MANUAL) 1 % (13-45); MONOCYTES % (MANUAL) 8 % (3-13); SEGMENTED NEUTROPHILS % (MAN) 86 % (42-78); TOTAL CELLS COUNTED 100
[2020-03-03 06:17] LABS: ANISOCYTOSIS SLIGHT; OVALOCYTES SLIGHT; POLYCHROMASIA SLIGHT
[2020-03-03 06:18] LABS: PLATELET COMMENT ADEQUATE
[2020-03-03] MEDS: ONDANSETRON HCL INJ/PF 4 MG/2 ML SDV IV PRN ×2 (08:34→19:54)
[2020-03-03] MEDS: LISINOPRIL 10 MG TABLET PO SCH (10:01)
[2020-03-03] MEDS: PANTOPRAZOLE SODIUM 40 MG VIAL IV SCH ×2 (10:01→21:48)
[2020-03-03] MEDS: RINGERS SOLUTION,LACTATED 1,000 ML IV PRN (10:01)
--- NOTE | 2020-03-03 11:27 | PDOC PROGRESS REPORT ---
Subjective Date:: 03/03/20 Subjective:: Some abdominal pain but well controlled with morphine. Reason For Visit: GI BLEED, ANEMIA Physical Exam Vital Signs: Temp Pulse Resp BP Pulse Ox 97.7 F 102 H 18 116/83 94 03/03/20 10:00 03/03/20 08:00 03/03/20 08:00 03/03/20 08:00 03/03/20 08:00 Intake & Output 03/02/20 03/03/20 03/04/20 06:59 06:59 06:59 Intake Total 4660 5200 935 Output Total 900 Balance 4660 4300 935 Weight 75.1 kg 75.1 kg General appearance: PRESENT: no acute distress, cooperative Respiratory exam: PRESENT: clear to auscultation dav Cardiovascular exam: PRESENT: RRR - Heart rate 100. Vascular exam: PRESENT: normal capillary refill GI/Abdominal exam: PRESENT: diminished bowel sounds, other - Soft, nondistended, mild diffuse abdominal tenderness without peritoneal signs. Extremities exam: PRESENT: other - No swelling and no tenderness. Psychiatric exam: PRESENT: appropriate affect Skin exam: PRESENT: warm Results Laboratory Results: 03/03/20 04:46 03/03/20 04:46 03/01/20 03/02/20 03/02/20 10:54 13:47 18:36 WBC 11.6 H 13.4 H RBC 2.65 L 2.51 L Hgb 8.2 L 7.9 L Hct 24.0 L 23.4 L MCV 91 93 MCH 31.0 31.6 MCHC 34.3 33.8 RDW 14.7 H 15.0 H Plt Count 270 307 Seg Neutrophils % 73.2 Sodium Potassium Chloride Carbon Dioxide Anion Gap BUN Creatinine Est GFR ( Amer) Glucose Calcium Total Bilirubin AST Alkaline Phosphatase Total Protein Albumin Blood Type O POSITIVE Antibody Screen NEGATIVE 03/02/20 03/02/20 03/03/20 18:36 22:55 04:46 WBC 22.5 H 28.9 H RBC 3.37 L 3.61 L Hgb 10.4 L D 11.1 L Hct 31.3 L 33.5 L MCV 93 93 MCH 30.7 30.8 MCHC 33.2 33.2 RDW 14.5 H 14.6 H Plt Count 261 236 Seg Neutrophils % Not Reportable Not Reportable Sodium 133.4 L Potassium 4.2 Chloride 109 H Carbon Dioxide 20 L Anion Gap 4 L BUN 41 H Creatinine 0.87 Est GFR ( Amer) > 60 Glucose 148 H Calcium 7.6 L Total Bilirubin 0.2 AST 19 Alkaline Phosphatase < 20 L Total Protein 3.4 L Albumin 1.8 L Blood Type Antibody Screen 03/03/20 04:46 WBC RBC Hgb Hct MCV MCH MCHC RDW Plt Count Seg Neutrophils % Sodium 135.8 L Potassium 4.5 Chloride 108 H Carbon Dioxide 18 L Anion Gap 10 BUN 49 H Creatinine 1.39 H Est GFR ( Amer) > 60 Glucose 131 H Calcium 8.8 Total Bilirubin AST Alkaline Phosphatase Total Protein Albumin Blood Type Antibody Screen 03/01/20 03/01/20 03/01/20 10:54 10:54 13:21 Creatine Kinase 31 L CK-MB (CK-2) 2.34 Troponin I < 0.012 < 0.012 Impressions: Chest X-Ray 03/01/20 10:21 IMPRESSION: NO SIGNIFICANT RADIOGRAPHIC FINDING IN THE CHEST. Abdomen/Pelvis CT 03/01/20 15:00 IMPRESSION: 1. Tiny stone in the proximal left ureter without significant hydronephrosis suggested. 2. No gross bowel pathology demonstrated. Assessment & Plan - Diagnosis (1) Diverticulitis of small intestine with bleeding Is this a current diagnosis for this admission?: Yes Plan: Status post segmental small bowel resection. Patient had colon perforation secondary to colonoscopy that was treated with partial left colon resection. Patient has leukocytosis with elevated creatinine but his abdominal exam looks okay. Will place on Levaquin and Flagyl and IV fluid bolus and increase his maintenance IV fluid. We will recheck his Chem-7 later today. If the creatinine appears to be worsening will obtain renal consult. (2) Perforation of colon as colonoscopy complication Is this a current diagnosis for this admission?: Yes Plan: Status post partial colon resection with anastomosis. - Time Anticipated Discharge Disposition: Home, Self Care Anticipated Discharge Timeframe: 5 days
[2020-03-03] MEDS ORDERED: NORMAL SALINE 1000 ML 1,000 ML IV ONE ×2 (12:15→23:30)
[2020-03-03] MEDS: METRONIDAZOLE 500 MG/NS RTU 500 MG/100 ML RTUPB IV SCH ×3 (12:46→23:20)
[2020-03-03] MEDS ORDERED: PROMETHAZINE HCL INJ 25 MG/1 ML VIAL IV PRN (12:49)
[2020-03-03] MEDS: NORMAL SALINE 1000 ML 1,000 ML IV PRN (13:21)
[2020-03-03] MEDS: LEVOFLOXACIN 500 MG/D5W RTU 500 MG/100 ML RTUPB IV SCH (14:22)
--- NOTE | 2020-03-03 18:47 | PDOC PROGRESS REPORT ---
Subjective Date:: 03/03/20 Subjective:: SHARITA AARON III is a 74 year old male with a past medical history significant for hypertension, mitral valve regurgitation/murmur, and anxiety who was admitted 03/01/2020 with acute blood loss anemia secondary to GI bleeding. Patient was seen on morning rounds. He is found resting in bed, comfortably, on room air. He reports continued fatigue. Does have some chest wall discomfort and abdominal pain. Reports mild nausea but without emesis. Currently with NG tube in place. Denies dyspnea, cough, palpitations, and chest pain. He denies fever, chills, chest pain, palpitations, dyspnea, orthopnea. He has no questions or concerns at this time. No concerns per nursing. Reason For Visit: GI BLEED, ANEMIA Physical Exam Vital Signs: Temp Pulse Resp BP Pulse Ox 97.5 F 90 16 92/49 L 92 03/03/20 16:44 03/03/20 16:44 03/03/20 16:44 03/03/20 16:44 03/03/20 16:44 Intake & Output 03/02/20 03/03/20 03/04/20 06:59 06:59 06:59 Intake Total 4660 5200 2248 Output Total 900 200 Balance 4660 4300 2048 Weight 75.1 kg 75.1 kg General appearance: PRESENT: no acute distress, cooperative, well-developed, well-nourished Head exam: PRESENT: atraumatic, normocephalic Eye exam: PRESENT: conjunctiva pink, EOMI, PERRLA. ABSENT: scleral icterus Mouth exam: PRESENT: moist, tongue midline Respiratory exam: PRESENT: clear to auscultation dav, symmetrical, unlabored, other - Room air. ABSENT: rales, rhonchi, wheezes Cardiovascular exam: PRESENT: RRR. ABSENT: diastolic murmur, rubs, systolic murmur Pulses: PRESENT: normal dorsalis pedis pul Vascular exam: PRESENT: normal capillary refill GI/Abdominal exam: PRESENT: hypoactive bowel sounds, soft, tenderness, other - NG tube. ABSENT: distended, guarding Rectal exam: PRESENT: deferred Extremities exam: PRESENT: full ROM. ABSENT: calf tenderness, clubbing, pedal edema Neurological exam: PRESENT: alert, awake, oriented to person, oriented to place, oriented to time, oriented to situation, CN II-XII grossly intact. ABSENT: motor sensory deficit Psychiatric exam: PRESENT: appropriate affect, normal mood. ABSENT: homicidal ideation, suicidal ideation Skin exam: PRESENT: dry, intact, warm. ABSENT: cyanosis, rash Results Laboratory Results: 03/03/20 04:46 03/03/20 04:46 03/01/20 03/02/20 03/02/20 10:54 18:36 18:36 WBC 13.4 H RBC 2.51 L Hgb 7.9 L Hct 23.4 L MCV 93 MCH 31.6 MCHC 33.8 RDW 15.0 H Plt Count 307 Seg Neutrophils % Sodium 133.4 L Potassium 4.2 Chloride 109 H Carbon Dioxide 20 L Anion Gap 4 L BUN 41 H Creatinine 0.87 Est GFR ( Amer) > 60 Glucose 148 H Calcium 7.6 L Total Bilirubin 0.2 AST 19 Alkaline Phosphatase < 20 L Total Protein 3.4 L Albumin 1.8 L Blood Type O POSITIVE Antibody Screen NEGATIVE 03/02/20 03/03/20 03/03/20 22:55 04:46 04:46 WBC 22.5 H 28.9 H RBC 3.37 L 3.61 L Hgb 10.4 L D 11.1 L Hct 31.3 L 33.5 L MCV 93 93 MCH 30.7 30.8 MCHC 33.2 33.2 RDW 14.5 H 14.6 H Plt Count 261 236 Seg Neutrophils % Not Reportable Not Reportable Sodium 135.8 L Potassium 4.5 Chloride 108 H Carbon Dioxide 18 L Anion Gap 10 BUN 49 H Creatinine 1.39 H Est GFR ( Amer) > 60 Glucose 131 H Calcium 8.8 Total Bilirubin AST Alkaline Phosphatase Total Protein Albumin Blood Type Antibody Screen 03/01/20 03/01/20 03/01/20 10:54 10:54 13:21 Creatine Kinase 31 L CK-MB (CK-2) 2.34 Troponin I < 0.012 < 0.012 Impressions: Chest X-Ray 03/01/20 10:21 IMPRESSION: NO SIGNIFICANT RADIOGRAPHIC FINDING IN THE CHEST. Abdomen/Pelvis CT 03/01/20 15:00 IMPRESSION: 1. Tiny stone in the proximal left ureter without significant hydronephrosis suggested. 2. No gross bowel pathology demonstrated. Assessment and Plan - Diagnosis (1) Anemia Qualifiers: Anemia type: unspecified type Qualified Code(s): D64.9 - Anemia, unspecified Is this a current diagnosis for this admission?: Yes Plan: Hemoglobin 8.3-> 6.7-> 9.2-> 7.7-> 8.2->10.4-> 11.1 Prior lab from 2013 showed hemoglobin of 9.5. Patient is not aware of history of chronic anemia. Anemia panel shows mild iron deficiency. Secondary to diverticulitis with bleeding. s/p 4 units PRBC Follow up CBC; transfuse for <8 (2) GI bleed Qualifiers: GI bleed type/associated pathology: melena Qualified Code(s): K92.1 - Melena Is this a current diagnosis for this admission?: Yes Plan: Secondary to diverticulitis of the small intestine with perforation during colonoscopy. Now status post partial left colon resection. Occult stool positive. CT abdomen/pelvis was unremarkable. Admitted to the medical floor. Hold aspirin. Protonix twice daily. NPO. Diet per surgery. Currently with NG tube to suction. Primary plan per surgical service. (3) S/P partial colectomy Is this a current diagnosis for this admission?: Yes Plan: Primary plan per surgery. Currently n.p.o. with NG tube to suction. Continue IV Metronidazole and Levaquin. Analgesics and antiemetics as needed. (4) Diverticulitis of small intestine with bleeding Is this a current diagnosis for this admission?: Yes (5) Perforation of colon as colonoscopy complication Is this a current diagnosis for this admission?: Yes (6) HTN (hypertension) Qualifiers: Hypertension type: essential hypertension Qualified Code(s): I10 - Essential (primary) hypertension Is this a current diagnosis for this admission?: Yes Plan: Continue home dose lisinopril (7) ROSA (acute kidney injury) Is this a current diagnosis for this admission?: Yes Plan: Continue generous IV fluids. Avoid nephrotoxic medications as able. Follow-up chemistry. - Time Time Spent with patient: 25-34 minutes Medications reviewed and adjusted accordingly: Yes Anticipated Discharge Disposition: Home with Home Health Anticipated Discharge Timeframe: TBD
--- NOTE | 2020-03-03 21:49 | PDOC PROGRESS REPORT ---
Subjective Date:: 03/03/20 Subjective:: Abdominal pain control with morphine. States that he feels okay. Reason For Visit: GI BLEED, ANEMIA Physical Exam Vital Signs: Temp Pulse Resp BP Pulse Ox 97.5 F 89 16 97/58 L 93 03/03/20 20:39 03/03/20 20:39 03/03/20 20:39 03/03/20 20:39 03/03/20 20:39 Intake & Output 03/02/20 03/03/20 03/04/20 06:59 06:59 06:59 Intake Total 4660 5200 2348 Output Total 900 600 Balance 4660 4300 1748 Weight 75.1 kg 75.1 kg General appearance: PRESENT: no acute distress, cooperative Respiratory exam: PRESENT: clear to auscultation dav Cardiovascular exam: PRESENT: RRR GI/Abdominal exam: PRESENT: other - Soft, nondistended, very mild diffuse abdominal tenderness with no peritoneal signs. Drain output is blood-tinged serosanguineous. Skin exam: PRESENT: warm Results Laboratory Results: 03/03/20 04:46 03/03/20 04:46 03/01/20 03/02/20 03/03/20 10:54 22:55 04:46 WBC 22.5 H 28.9 H RBC 3.37 L 3.61 L Hgb 10.4 L D 11.1 L Hct 31.3 L 33.5 L MCV 93 93 MCH 30.7 30.8 MCHC 33.2 33.2 RDW 14.5 H 14.6 H Plt Count 261 236 Seg Neutrophils % Not Reportable Not Reportable Sodium Potassium Chloride Carbon Dioxide Anion Gap BUN Creatinine Est GFR ( Amer) Glucose Calcium Blood Type O POSITIVE Antibody Screen NEGATIVE 03/03/20 04:46 WBC RBC Hgb Hct MCV MCH MCHC RDW Plt Count Seg Neutrophils % Sodium 135.8 L Potassium 4.5 Chloride 108 H Carbon Dioxide 18 L Anion Gap 10 BUN 49 H Creatinine 1.39 H Est GFR ( Amer) > 60 Glucose 131 H Calcium 8.8 Blood Type Antibody Screen 03/01/20 03/01/20 03/01/20 10:54 10:54 13:21 Creatine Kinase 31 L CK-MB (CK-2) 2.34 Troponin I < 0.012 < 0.012 Impressions: Chest X-Ray 03/01/20 10:21 IMPRESSION: NO SIGNIFICANT RADIOGRAPHIC FINDING IN THE CHEST. Abdomen/Pelvis CT 03/01/20 15:00 IMPRESSION: 1. Tiny stone in the proximal left ureter without significant hydronephrosis suggested. 2. No gross bowel pathology demonstrated. Assessment & Plan - Diagnosis (1) Diverticulitis of small intestine with bleeding Is this a current diagnosis for this admission?: Yes Plan: Status post small bowel resection. Still pending repeat chemistries. Looks okay. Not tachycardic but systolic blood pressures in the 90s. Urine output has improved. Abdominal exam looks okay. Does not appear fluid overloaded. Will give additional fluid bolus tonight. (2) Perforation of colon as colonoscopy complication Is this a current diagnosis for this admission?: Yes - Time Anticipated Discharge Disposition: Home, Self Care Anticipated Discharge Timeframe: week
[2020-03-03 23:20] LABS: ASPARTATE AMINO TRANSFERASE 118 U/L (17-59); BILIRUBIN,TOTAL 0.6 mg/dL (0.2-1.3); BLOOD UREA NITROGEN 63 mg/dL (7-20); CALCIUM 8.6 mg/dL (8.4-10.2); CARBON DIOXIDE 21 mmol/L (22-30); GLUCOSE 108 mg/dL (75-110); NEONATAL BILIRUBIN RESULT 0.6 mg/dL (0.1-1.1); POTASSIUM 4.6 mmol/L (3.6-5.0); TOTAL PROTEIN 3.8 g/dL (6.3-8.2)
[2020-03-03 23:24] LABS: ALKALINE PHOSPHATASE < 20 U/L (38-126)
[2020-03-03 23:26] LABS: CHLORIDE 110 mmol/L (98-107)
[2020-03-03 23:28] LABS: ANION GAP 4 (5-19)
[2020-03-04] MEDS: ONDANSETRON HCL INJ/PF 4 MG/2 ML SDV IV PRN (02:57)
[2020-03-04] MEDS: MORPHINE SULFATE 10 MG/ML INJ IV PRN (02:57)
[2020-03-04] MEDS: NORMAL SALINE 1000 ML 1,000 ML IV PRN ×2 (02:58→17:42)
[2020-03-04] MEDS: METRONIDAZOLE 500 MG/NS RTU 500 MG/100 ML RTUPB IV SCH ×4 (05:18→23:19)
[2020-03-04 05:38] LABS: HEMATOCRIT 23.5 % (37.9-51.0); MEAN CORPUSCULAR HGB CONC 34.1 g/dL (32.0-36.0); MEAN CORPUSCULAR VOLUME 94 fl (80-97); RED BLOOD COUNT 2.51 10^6/uL (4.35-5.55); WHITE BLOOD COUNT 23.5 10^3/uL (4.0-10.5)
[2020-03-04 05:56] LABS: ALBUMIN 1.9 g/dL (3.5-5.0); ALKALINE PHOSPHATASE 22 U/L (38-126); ASPARTATE AMINO TRANSFERASE 119 U/L (17-59); BILIRUBIN,TOTAL 0.5 mg/dL (0.2-1.3); BLOOD UREA NITROGEN 60 mg/dL (7-20); CALCIUM 8.5 mg/dL (8.4-10.2); CARBON DIOXIDE 20 mmol/L (22-30); CHLORIDE 112 mmol/L (98-107); GLUCOSE 94 mg/dL (75-110); POTASSIUM 4.4 mmol/L (3.6-5.0); TOTAL PROTEIN 3.7 g/dL (6.3-8.2)
[2020-03-04 06:05] LABS: PLATELET COUNT 285 10^3/uL (150-450)
[2020-03-04 06:08] LABS: ANION GAP 4 (5-19)
[2020-03-04] MEDS ORDERED: NORMAL SALINE 250 ML IV PRN ×2 (07:59)
--- NOTE | 2020-03-04 08:05 | PDOC PROGRESS REPORT ---
Subjective Date:: 03/04/20 Subjective:: feels a little better, still has not been out of bed Reason For Visit: GI BLEED, ANEMIA Physical Exam Vital Signs: Temp Pulse Resp BP Pulse Ox 97.4 F 91 17 113/67 93 03/04/20 08:02 03/04/20 08:02 03/04/20 08:02 03/04/20 08:02 03/04/20 08:02 Intake & Output 03/03/20 03/04/20 03/05/20 06:59 06:59 06:59 Intake Total 5200 4548 Output Total 900 1160 Balance 4300 3388 Weight 75.1 kg 75.1 kg General appearance: PRESENT: no acute distress Head exam: PRESENT: normocephalic Eye exam: PRESENT: EOMI Ear exam: PRESENT: normal external ear exam Mouth exam: PRESENT: moist Neck exam: PRESENT: full ROM Respiratory exam: PRESENT: clear to auscultation dav Cardiovascular exam: PRESENT: RRR Pulses: PRESENT: normal radial pulses, normal femoral pulses Breast: PRESENT: Normal GI/Abdominal exam: PRESENT: soft, other - kassidy serous Rectal exam: PRESENT: deferred Extremities exam: PRESENT: full ROM Musculoskeletal exam: PRESENT: full ROM Neurological exam: PRESENT: alert, awake, oriented to person, oriented to place Psychiatric exam: PRESENT: appropriate affect Skin exam: PRESENT: dry Results Laboratory Results: 03/04/20 04:34 03/04/20 04:34 03/01/20 03/03/20 03/03/20 10:54 20:30 22:04 WBC RBC Hgb Hct MCV MCH MCHC RDW Plt Count Sodium Cancelled Cancelled Potassium Cancelled Cancelled Chloride Cancelled Cancelled Carbon Dioxide Cancelled Cancelled Anion Gap Cancelled Cancelled BUN Cancelled Cancelled Creatinine Cancelled Cancelled Est GFR ( Amer) Cancelled Cancelled Est GFR (Non-Af Amer) Cancelled Cancelled Glucose Cancelled Cancelled Calcium Cancelled Cancelled Total Bilirubin Cancelled Cancelled AST Cancelled Cancelled Alkaline Phosphatase Cancelled Cancelled Total Protein Cancelled Cancelled Albumin Cancelled Cancelled Blood Type O POSITIVE Antibody Screen NEGATIVE 03/03/20 03/04/20 03/04/20 22:51 04:34 04:34 WBC 23.5 H RBC 2.51 L Hgb 8.0 L D Hct 23.5 L MCV 94 MCH 32.0 MCHC 34.1 RDW 15.0 H Plt Count 285 Sodium 135.4 L 136.4 L Potassium 4.6 4.4 Chloride 110 H 112 H Carbon Dioxide 21 L 20 L Anion Gap 4 L 4 L BUN 63 H 60 H Creatinine 1.59 H 1.45 H Est GFR ( Amer) 52 L 58 L Est GFR (Non-Af Amer) Glucose 108 94 Calcium 8.6 8.5 Total Bilirubin 0.6 0.5 AST 118 H 119 H Alkaline Phosphatase < 20 L 22 L Total Protein 3.8 L 3.7 L Albumin 2.0 L 1.9 L Blood Type Antibody Screen 03/01/20 03/01/20 03/01/20 10:54 10:54 13:21 Creatine Kinase 31 L CK-MB (CK-2) 2.34 Troponin I < 0.012 < 0.012 Impressions: Chest X-Ray 03/01/20 10:21 IMPRESSION: NO SIGNIFICANT RADIOGRAPHIC FINDING IN THE CHEST. Abdomen/Pelvis CT 03/01/20 15:00 IMPRESSION: 1. Tiny stone in the proximal left ureter without significant hydronephrosis suggested. 2. No gross bowel pathology demonstrated. Assessment & Plan - Time Anticipated Discharge Disposition: Home, Self Care Anticipated Discharge Timeframe: unk - Plan Summary Plan Summary: wbc trending down hct down this am but no evidence of bleeding has recieved bolus's yesterday for low bp passed some flatus this am, no blood ng clear bile plan txn 2 additional units of prbc dc amezcua out of bed with pt today cont npo and ng
[2020-03-04] MEDS: LEVOFLOXACIN 500 MG/D5W RTU 500 MG/100 ML RTUPB IV SCH (09:21)
[2020-03-04] MEDS: PANTOPRAZOLE SODIUM 40 MG VIAL IV SCH ×2 (09:21→23:19)
[2020-03-04] MEDS: LISINOPRIL 10 MG TABLET PO SCH (09:21)
[2020-03-04] MEDS: KETOROLAC TROMETHAMINE INJ/PF 30 MG/1 ML SDV IV PRN (09:21)
[2020-03-04] MEDS ORDERED: BENZOCAINE/MENTHOL SORE THROAT LOZENGE BUCCAL PRN (09:28)
[2020-03-04] MEDS ORDERED: MORPHINE SULFATE 10 MG/ML INJ IV PRN (18:29)
--- NOTE | 2020-03-04 18:32 | PDOC PROGRESS REPORT ---
Subjective Date:: 03/04/20 Subjective:: SHARITA AARON III is a 74 year old male with a past medical history significant for hypertension, mitral valve regurgitation/murmur, and anxiety who was admitted 03/01/2020 with acute blood loss anemia secondary to GI bleeding. Patient was seen on morning rounds. He is found resting in bed, comfortably, on room air. He reports continued fatigue, though improved. Chest wall and abdominal pain are significantly improved. Now w/ loose, melena, stools. Currently with NG tube in place to suction w/ continued output. He denies fever, chills, chest pain, palpitations, dyspnea, orthopnea, cough. He has no questions or concerns at this time. No concerns per nursing. Reason For Visit: GI BLEED, ANEMIA Physical Exam Vital Signs: Temp Pulse Resp BP Pulse Ox 98.0 F 91 17 114/62 92 03/04/20 17:12 03/04/20 17:12 03/04/20 17:12 03/04/20 17:12 03/04/20 17:12 Intake & Output 03/03/20 03/04/20 03/05/20 06:59 06:59 06:59 Intake Total 5200 4548 1636 Output Total 900 1215 1250 Balance 4300 3333 386 Weight 75.1 kg 75.1 kg General appearance: PRESENT: no acute distress, cooperative, well-developed, well-nourished Head exam: PRESENT: atraumatic, normocephalic Eye exam: PRESENT: conjunctiva pink, EOMI, PERRLA. ABSENT: scleral icterus Mouth exam: PRESENT: moist, tongue midline Respiratory exam: PRESENT: clear to auscultation dav, symmetrical, unlabored, other - room air. ABSENT: rales, rhonchi, wheezes Cardiovascular exam: PRESENT: RRR. ABSENT: diastolic murmur, rubs, systolic murmur Vascular exam: PRESENT: normal capillary refill GI/Abdominal exam: PRESENT: hypoactive bowel sounds, soft, tenderness, other - NG tube. ABSENT: distended, guarding, mass, organolmegaly, rebound Rectal exam: PRESENT: bloody stool Extremities exam: PRESENT: full ROM. ABSENT: calf tenderness, clubbing, pedal edema Neurological exam: PRESENT: alert, awake, oriented to person, oriented to place, oriented to time, oriented to situation, CN II-XII grossly intact. ABSENT: motor sensory deficit Psychiatric exam: PRESENT: appropriate affect, normal mood. ABSENT: homicidal ideation, suicidal ideation Skin exam: PRESENT: dry, warm. ABSENT: cyanosis, rash Results Laboratory Results: 03/04/20 04:34 03/04/20 04:34 03/01/20 03/03/20 03/03/20 10:54 20:30 22:04 WBC RBC Hgb Hct MCV MCH MCHC RDW Plt Count Sodium Cancelled Cancelled Potassium Cancelled Cancelled Chloride Cancelled Cancelled Carbon Dioxide Cancelled Cancelled Anion Gap Cancelled Cancelled BUN Cancelled Cancelled Creatinine Cancelled Cancelled Est GFR ( Amer) Cancelled Cancelled Est GFR (Non-Af Amer) Cancelled Cancelled Glucose Cancelled Cancelled Calcium Cancelled Cancelled Total Bilirubin Cancelled Cancelled AST Cancelled Cancelled Alkaline Phosphatase Cancelled Cancelled Total Protein Cancelled Cancelled Albumin Cancelled Cancelled Blood Type O POSITIVE Antibody Screen NEGATIVE 03/03/20 03/04/20 03/04/20 22:51 04:34 04:34 WBC 23.5 H RBC 2.51 L Hgb 8.0 L D Hct 23.5 L MCV 94 MCH 32.0 MCHC 34.1 RDW 15.0 H Plt Count 285 Sodium 135.4 L 136.4 L Potassium 4.6 4.4 Chloride 110 H 112 H Carbon Dioxide 21 L 20 L Anion Gap 4 L 4 L BUN 63 H 60 H Creatinine 1.59 H 1.45 H Est GFR ( Amer) 52 L 58 L Est GFR (Non-Af Amer) Glucose 108 94 Calcium 8.6 8.5 Total Bilirubin 0.6 0.5 AST 118 H 119 H Alkaline Phosphatase < 20 L 22 L Total Protein 3.8 L 3.7 L Albumin 2.0 L 1.9 L Blood Type Antibody Screen 03/04/20 09:06 WBC RBC Hgb Hct MCV MCH MCHC RDW Plt Count Sodium Potassium Chloride Carbon Dioxide Anion Gap BUN Creatinine Est GFR ( Amer) Est GFR (Non-Af Amer) Glucose Calcium Total Bilirubin AST Alkaline Phosphatase Total Protein Albumin Blood Type O POSITIVE Antibody Screen NEGATIVE 03/01/20 03/01/20 03/01/20 10:54 10:54 13:21 Creatine Kinase 31 L CK-MB (CK-2) 2.34 Troponin I < 0.012 < 0.012 Impressions: Chest X-Ray 03/01/20 10:21 IMPRESSION: NO SIGNIFICANT RADIOGRAPHIC FINDING IN THE CHEST. Abdomen/Pelvis CT 03/01/20 15:00 IMPRESSION: 1. Tiny stone in the proximal left ureter without significant hydronephrosis suggested. 2. No gross bowel pathology demonstrated. Assessment and Plan - Diagnosis (1) Anemia Qualifiers: Anemia type: unspecified type Qualified Code(s): D64.9 - Anemia, unspecif ied Is this a current diagnosis for this admission?: Yes Plan: Acute blood loss anemia r/t diverticulitis with bleeding. Hemoglobin 8.3-> 6.7-> 11.1-> 8.0 Anemia panel shows mild iron deficiency. s/p 4 units PRBC; 2 additional units ordered today. Follow up CBC; transfuse for <8 (2) GI bleed Qualifiers: GI bleed type/associated pathology: melena Qualified Code(s): K92.1 - Melena Is this a current diagnosis for this admission?: Yes Plan: Secondary to diverticulitis of the small intestine with perforation during colonoscopy. Now status post partial left colon resection. Occult stool positive. CT abdomen/pelvis was unremarkable. Admitted to the medical floor. Hold aspirin. Protonix twice daily. NPO. Diet per surgery. Currently with NG tube to suction. Primary plan per surgical service. (3) S/P partial colectomy Is this a current diagnosis for this admission?: Yes Plan: WBCs are trending down, remains afebrile. Pain is improved. Primary plan per surgery. Currently n.p.o. with NG tube to suction. Continue IV Metronidazole and Levaquin; day #2. Analgesics and antiemetics as needed. (4) Diverticulitis of small intestine with bleeding Is this a current diagnosis for this admission?: Yes (5) Perforation of colon as colonoscopy complication Is this a current diagnosis for this admission?: Yes (6) HTN (hypertension) Qualifiers: Hypertension type: essential hypertension Qualified Code(s): I10 - Essential (primary) hypertension Is this a current diagnosis for this admission?: Yes Plan: Blood pressures have been soft. Continuing IVF and PRBC replacement. Hold lisinopril for now. (7) ROSA (acute kidney injury) Is this a current diagnosis for this admission?: Yes Plan: Prerenal r/t hypotention in setting of ABLA anemia. Additional PRBC as above. Continue generous IV fluids. Avoid nephrotoxic medications as able. Follow-up chemistry. - Time Time Spent with patient: 25-34 minutes Medications reviewed and adjusted accordingly: Yes Anticipated Discharge Disposition: Home with Home Health Anticipated Discharge Timeframe: TBD
[2020-03-05] MEDS: METRONIDAZOLE 500 MG/NS RTU 500 MG/100 ML RTUPB IV SCH ×4 (05:15→23:01)
[2020-03-05 06:54] LABS: HEMOGLOBIN 9.5 g/dL (13.5-17.0); MEAN CORPUSCULAR VOLUME 91 fl (80-97); PLATELET COUNT 264 10^3/uL (150-450); RED BLOOD COUNT 3.06 10^6/uL (4.35-5.55); RED CELL DISTRIBUTION WIDTH 15.1 % (11.5-14.0); WHITE BLOOD COUNT 16.6 10^3/uL (4.0-10.5)
[2020-03-05 06:57] LABS: BLOOD UREA NITROGEN 44 mg/dL (7-20); CALCIUM 8.8 mg/dL (8.4-10.2); CARBON DIOXIDE 23 mmol/L (22-30); CHLORIDE 116 mmol/L (98-107); GLUCOSE 86 mg/dL (75-110)
[2020-03-05 07:08] LABS: ANION GAP 1 (5-19)
[2020-03-05 07:46] LABS: ABSOLUTE LYMPHOCYTES# (MANUAL) 0.7 10^3/uL (0.5-4.7); ABSOLUTE MONOCYTES # (MANUAL) 1.2 10^3/uL (0.1-1.4); BASOPHILS % (MANUAL) 0 % (0-2); EOSINOPHILS % (MANUAL) 0 % (0-6); LYMPHOCYTES % (MANUAL) 4 % (13-45); MONOCYTES % (MANUAL) 7 % (3-13); NUCLEATED RED BLOOD CELLS 1 /100 WBC (0); SEGMENTED NEUTROPHILS % (MAN) 89 % (42-78); TOTAL CELLS COUNTED 100
[2020-03-05 07:47] LABS: ANISOCYTOSIS SLIGHT; PLATELET COMMENT ADEQUATE; POLYCHROMASIA SLIGHT
[2020-03-05] MEDS: LEVOFLOXACIN 500 MG/D5W RTU 500 MG/100 ML RTUPB IV SCH (09:18)
[2020-03-05] MEDS: PANTOPRAZOLE SODIUM 40 MG VIAL IV SCH ×2 (09:18→23:01)
[2020-03-05] MEDS: NORMAL SALINE 1000 ML 1,000 ML IV PRN (09:18)
--- NOTE | 2020-03-05 11:34 | PDOC PROGRESS REPORT ---
Subjective Date:: 03/05/20 Subjective:: Feels better. Had bowel movements and passing gas. Reason For Visit: GI BLEED, ANEMIA Physical Exam Vital Signs: Temp Pulse Resp BP Pulse Ox 98.2 F 86 18 120/69 96 03/05/20 07:29 03/05/20 07:29 03/05/20 07:29 03/05/20 07:29 03/05/20 07:29 Intake & Output 03/04/20 03/05/20 03/06/20 06:59 06:59 06:59 Intake Total 4548 2736 477 Output Total 1215 1290 Balance 3333 1446 477 Weight 75.1 kg 75.1 kg General appearance: PRESENT: no acute distress, cooperative Respiratory exam: PRESENT: clear to auscultation dav Cardiovascular exam: PRESENT: RRR GI/Abdominal exam: PRESENT: other - Soft, nondistended, minimal tenderness. Active bowel sounds. Drain output is blood-tinged. Wound is clean dry and intact with no erythema. Results Laboratory Results: 03/05/20 05:36 03/05/20 05:36 03/04/20 03/05/20 03/05/20 09:06 05:36 05:36 WBC 16.6 H RBC 3.06 L Hgb 9.5 L Hct 28.0 L MCV 91 MCH 31.0 MCHC 34.0 RDW 15.1 H Plt Count 264 Seg Neutrophils % Not Reportable Sodium 140.4 Potassium 4.0 Chloride 116 H Carbon Dioxide 23 Anion Gap 1 L BUN 44 H Creatinine 1.01 Est GFR ( Amer) > 60 Glucose 86 Calcium 8.8 Blood Type O POSITIVE Antibody Screen NEGATIVE 03/01/20 03/01/20 03/01/20 10:54 10:54 13:21 Creatine Kinase 31 L CK-MB (CK-2) 2.34 Troponin I < 0.012 < 0.012 Impressions: Chest X-Ray 03/01/20 10:21 IMPRESSION: NO SIGNIFICANT RADIOGRAPHIC FINDING IN THE CHEST. Abdomen/Pelvis CT 03/01/20 15:00 IMPRESSION: 1. Tiny stone in the proximal left ureter without significant hydronephrosis suggested. 2. No gross bowel pathology demonstrated. Assessment & Plan - Diagnosis (1) Diverticulitis of small intestine with bleeding Is this a current diagnosis for this admission?: Yes Plan: That is post small bowel resection. Patient has good bowel function now. Will DC NG tube and start clear liquids. Appropriate increase of his hematocrit with blood transfusions yesterday. Will repeat CBC tomorrow. (2) Perforation of colon as colonoscopy complication Is this a current diagnosis for this admission?: Yes - Time Anticipated Discharge Disposition: Home, Self Care Anticipated Discharge Timeframe: within 72 hours
--- NOTE | 2020-03-05 14:01 | PDOC PROGRESS REPORT ---
Subjective Date:: 03/05/20 Subjective:: SHARITA AARON III is a 74 year old male with a past medical history significant for hypertension, mitral valve regurgitation/murmur, and anxiety who was admitted 03/01/2020 with acute blood loss anemia secondary to GI bleeding. Patient was seen on morning rounds. He is found resting in bed, comfortably, on room air. He is feeling much better today. NG tube has been removed, ioana erating clear liquids, and ambulated in the [facility] with PT today. Continues to have melena bowel movements. Chest wall and abdominal pain have resolved. He denies fever, chills, chest pain, palpitations, dyspnea, orthopnea, cough. He has no questions or concerns at this time. No concerns per nursing. Reason For Visit: GI BLEED, ANEMIA Physical Exam Vital Signs: Temp Pulse Resp BP Pulse Ox 98.3 F 81 17 129/64 H 96 03/05/20 11:24 03/05/20 11:24 03/05/20 11:24 03/05/20 11:24 03/05/20 11:24 Intake & Output 03/04/20 03/05/20 03/06/20 06:59 06:59 06:59 Intake Total 4548 2736 813 Output Total 1215 1290 380 Balance 3333 1446 433 Weight 75.1 kg 75.1 kg General appearance: PRESENT: no acute distress, cooperative, well-developed, well-nourished Head exam: PRESENT: atraumatic, normocephalic Eye exam: PRESENT: conjunctiva pink, EOMI, PERRLA. ABSENT: scleral icterus Mouth exam: PRESENT: moist, tongue midline Respiratory exam: PRESENT: clear to auscultation dav, symmetrical, unlabored, other - room air. ABSENT: rales, rhonchi, wheezes Cardiovascular exam: PRESENT: RRR, +S1, +S2. ABSENT: diastolic murmur, rubs, systolic murmur Pulses: PRESENT: normal dorsalis pedis pul Vascular exam: PRESENT: normal capillary refill GI/Abdominal exam: PRESENT: normal bowel sounds, soft, other - surgical incision is well approximated, no signs of erythema or drainage. JUAN drain with scant serosanguineous drainage noted.. ABSENT: distended, guarding, mass, organolmegaly, rebound, tenderness Rectal exam: PRESENT: deferred, bloody stool Extremities exam: PRESENT: full ROM. ABSENT: calf tenderness, clubbing, pedal edema Musculoskeletal exam: PRESENT: ambulatory Neurological exam: PRESENT: alert, awake, oriented to person, oriented to place, oriented to time, oriented to situation, CN II-XII grossly intact. ABSENT: motor sensory deficit Psychiatric exam: PRESENT: appropriate affect, normal mood. ABSENT: homicidal ideation, suicidal ideation Skin exam: PRESENT: dry, warm. ABSENT: cyanosis, rash Results Laboratory Results: 03/05/20 05:36 03/05/20 05:36 03/04/20 03/05/20 03/05/20 09:06 05:36 05:36 WBC 16.6 H RBC 3.06 L Hgb 9.5 L Hct 28.0 L MCV 91 MCH 31.0 MCHC 34.0 RDW 15.1 H Plt Count 264 Seg Neutrophils % Not Reportable Sodium 140.4 Potassium 4.0 Chloride 116 H Carbon Dioxide 23 Anion Gap 1 L BUN 44 H Creatinine 1.01 Est GFR ( Amer) > 60 Glucose 86 Calcium 8.8 Blood Type O POSITIVE Antibody Screen NEGATIVE 03/01/20 03/01/20 03/01/20 10:54 10:54 13:21 Creatine Kinase 31 L CK-MB (CK-2) 2.34 Troponin I < 0.012 < 0.012 Impressions: Chest X-Ray 03/01/20 10:21 IMPRESSION: NO SIGNIFICANT RADIOGRAPHIC FINDING IN THE CHEST. Abdomen/Pelvis CT 03/01/20 15:00 IMPRESSION: 1. Tiny stone in the proximal left ureter without significant hydronephrosis suggested. 2. No gross bowel pathology demonstrated. Assessment and Plan - Diagnosis (1) Anemia Qualifiers: Anemia type: unspecified type Qualified Code(s): D64.9 - Anemia, unspecified Is this a current diagnosis for this admission?: Yes Plan: Acute blood loss anemia r/t diverticulitis with bleeding. Hemoglobin 8.3-> 6.7-> 11.1-> 8.0-> 9.5 Anemia panel shows mild iron deficiency. s/p 7 units PRBC Follow up CBC; transfuse for <8 (2) GI bleed Qualifiers: GI bleed type/associated pathology: melena Qualified Code(s): K92.1 - Melena Is this a current diagnosis for this admission?: Yes Plan: Secondary to diverticulitis of the small intestine with perforation during colonoscopy. Now status post partial left colon resection. Occult stool positive. CT abdomen/pelvis was unremarkable. Admitted to the medical floor. Hold aspirin. Protonix twice daily. Diet per surgery. Primary plan per surgical service. (3) S/P partial colectomy Is this a current diagnosis for this admission?: Yes Plan: WBCs are trending down, remains afebrile. Pain has resolved. Primary plan per surgery. Surgery has advanced to a clear liquid diet. NG tube removed. Continue IV Metronidazole and Levaquin; day #3. Analgesics and antiemetics as needed. (4) Diverticulitis of small intestine with bleeding Is this a current diagnosis for this admission?: Yes (5) Perforation of colon as colonoscopy complication Is this a current diagnosis for this admission?: Yes Plan: Status post partial colon resection with anastomosis. (6) HTN (hypertension) Qualifiers: Hypertension type: essential hypertension Qualified Code(s): I10 - Ess ential (primary) hypertension Is this a current diagnosis for this admission?: Yes Plan: Blood pressures are improved Continuing IVF and PRBC replacement as above. Hold lisinopril for now. (7) ROSA (acute kidney injury) Is this a current diagnosis for this admission?: Yes Plan: Prerenal r/t hypotention in setting of ABLA anemia. Significantly improved; Cr 1.01/BUN 44today PRBC as above. Continue IV fluids. Now on clear liquids. Avoid nephrotoxic medications as able. Follow-up chemistry. - Time Time Spent with patient: 25-34 minutes Medications reviewed and adjusted accordingly: Yes Anticipated Discharge Disposition: Home, Self Care Anticipated Discharge Timeframe: within 48 hours
[2020-03-06] MEDS: METRONIDAZOLE 500 MG/NS RTU 500 MG/100 ML RTUPB IV SCH ×3 (05:17→18:43)
[2020-03-06 06:06] LABS: HEMATOCRIT 25.6 % (37.9-51.0); HEMOGLOBIN 8.7 g/dL (13.5-17.0); MEAN CORPUSCULAR HEMOGLOBIN 31.2 pg (27.0-33.4); MEAN CORPUSCULAR VOLUME 92 fl (80-97); PLATELET COUNT 259 10^3/uL (150-450); RED BLOOD COUNT 2.78 10^6/uL (4.35-5.55); RED CELL DISTRIBUTION WIDTH 15.2 % (11.5-14.0); WHITE BLOOD COUNT 12.5 10^3/uL (4.0-10.5)
[2020-03-06 06:11] LABS: BLOOD UREA NITROGEN 30 mg/dL (7-20); CALCIUM 8.5 mg/dL (8.4-10.2); GLUCOSE 93 mg/dL (75-110); POTASSIUM 3.7 mmol/L (3.6-5.0)
[2020-03-06 06:16] LABS: CARBON DIOXIDE 23 mmol/L (22-30); CHLORIDE 115 mmol/L (98-107)
[2020-03-06 06:24] LABS: ANION GAP 4 (5-19)
[2020-03-06] MEDS: ONDANSETRON HCL INJ/PF 4 MG/2 ML SDV IV PRN (06:46)
[2020-03-06] MEDS: LEVOFLOXACIN 500 MG/D5W RTU 500 MG/100 ML RTUPB IV SCH (09:10)
[2020-03-06] MEDS: PANTOPRAZOLE SODIUM 40 MG VIAL IV SCH ×2 (09:10→21:22)
[2020-03-06] MEDS ORDERED: ZOLPIDEM TARTRATE 5 MG TABLET PO PRN (11:55)
--- NOTE | 2020-03-06 13:11 | PDOC PROGRESS REPORT ---
Subjective Date:: 03/06/20 Reason For Visit: GI BLEED, ANEMIA Patient has no complaints, adequate pain control. Voiding, tolerating clear liquids, ambulating. Physical Exam Vital Signs: Temp Pulse Resp BP Pulse Ox 97.5 F 77 21 H 129/77 H 94 03/06/20 10:00 03/06/20 07:59 03/06/20 07:59 03/06/20 07:59 03/06/20 07:59 Intake & Output 03/05/20 03/06/20 03/07/20 06:59 06:59 06:59 Intake Total 2736 3073 Output Total 1290 1330 Balance 1446 1743 Weight 75.1 kg 75.1 kg General appearance: PRESENT: no acute distress GI/Abdominal exam: PRESENT: other - Midline incision inspected; elba intact; drain with serosanguineous fluid. Results Laboratory Results: 03/06/20 05:11 03/06/20 05:11 03/06/20 03/06/20 05:11 05:11 WBC 12.5 H RBC 2.78 L Hgb 8.7 L Hct 25.6 L MCV 92 MCH 31.2 MCHC 34.0 RDW 15.2 H Plt Count 259 Sodium 141.8 Potassium 3.7 Chloride 115 H Carbon Dioxide 23 Anion Gap 4 L BUN 30 H Creatinine 0.88 Est GFR ( Amer) > 60 Glucose 93 Calcium 8.5 03/01/20 03/01/20 03/01/20 10:54 10:54 13:21 Creatine Kinase 31 L CK-MB (CK-2) 2.34 Troponin I < 0.012 < 0.012 Impressions: Chest X-Ray 03/01/20 10:21 IMPRESSION: NO SIGNIFICANT RADIOGRAPHIC FINDING IN THE CHEST. Abdomen/Pelvis CT 03/01/20 15:00 IMPRESSION: 1. Tiny stone in the proximal left ureter without significant hydronephrosis suggested. 2. No gross bowel pathology demonstrated. Assessment & Plan - Diagnosis (1) GI bleed Qualifiers: GI bleed type/associated pathology: melena Qualified Code(s): K92.1 - Melena Is this a current diagnosis for this admission?: Yes Plan: Impression: Patient postoperative day 3 status post quarter laparotomy, jejunal resection, left colectomy, doing well, tolerating a diet, adequate pain control. Drop in hemoglobin likely dilutional. Recommendations: 1. We will advance diet to full liquids 2. DC morphine; add Toradol IV for breakthrough pain; will add Percocet 3. Anticipate discharge in the next 24 to 48 hours. (2) Left lower quadrant abdominal mass Is this a current diagnosis for this admission?: Yes (3) Anemia Qualifiers: Anemia type: unspecified type Qualified Code(s): D64.9 - Anemia, unspecified Is this a current diagnosis for this admission?: Yes (4) HTN (hypertension) Qualifiers: Hypertension type: essential hypertension Qualified Code(s): I10 - Essential (primary) hypertension Is this a current diagnosis for this admission?: Yes (5) Osteoarthritis of both knees Is this a current diagnosis for this admission?: Yes - Time Anticipated Discharge Disposition: Home, Self Care Anticipated Discharge Timeframe: within 24 hours
--- NOTE | 2020-03-06 16:21 | PDOC PROGRESS REPORT ---
Subjective Date:: 03/06/20 Subjective:: SHARITA AARON III is a 74 year old male with a past medical history significant for hypertension, mitral valve regurgitation/murmur, and anxiety who was admitted 03/01/2020 with acute blood loss anemia secondary to GI bleeding. Patient was seen on morning rounds. He is found resting in bed, comfortably, on room air. He is feeling much better today. Tolerating clear liquids and has been advanced to full liquids by surgery. Continues to have melena bowel movements. Chest wall and abdominal pain have resolved. He denies fever, chills, chest pain, palpitations, dyspnea, orthopnea, cough. He has no questions or concerns at this time. Overall, feeling much better and is optimistic to discharge home this weekend. No concerns per nursing. Reason For Visit: GI BLEED, ANEMIA Physical Exam Vital Signs: Temp Pulse Resp BP Pulse Ox 98.7 F 93 16 130/82 H 99 03/06/20 12:00 03/06/20 12:00 03/06/20 12:00 03/06/20 12:00 03/06/20 12:00 Intake & Output 03/05/20 03/06/20 03/07/20 06:59 06:59 06:59 Intake Total 2736 3173 240 Output Total 1290 1330 Balance 1446 1843 240 Weight 75.1 kg 75.1 kg General appearance: PRESENT: no acute distress, cooperative, well-developed, well-nourished Head exam: PRESENT: atraumatic, normocephalic Eye exam: PRESENT: conjunctiva pink, EOMI, PERRLA. ABSENT: scleral icterus Mouth exam: PRESENT: moist, tongue midline Respiratory exam: PRESENT: clear to auscultation dav, symmetrical, unlabored, other - Room air. ABSENT: rales, rhonchi, wheezes Cardiovascular exam: PRESENT: RRR. ABSENT: diastolic murmur, rubs, systolic murmur Vascular exam: PRESENT: normal capillary refill GI/Abdominal exam: PRESENT: normal bowel sounds, soft, other - Surgical incision; no signs of infection. JUAN drain with serosanguineous drainage.. ABSENT: distended, guarding, mass, organolmegaly, rebound, tenderness Rectal exam: PRESENT: deferred Extremities exam: PRESENT: full ROM. ABSENT: calf tenderness, clubbing, pedal edema Musculoskeletal exam: PRESENT: ambulatory Neurological exam: PRESENT: alert, awake, oriented to person, oriented to place, oriented to time, oriented to situation, CN II-XII grossly intact. ABSENT: motor sensory deficit Psychiatric exam: PRESENT: appropriate affect, normal mood. ABSENT: homicidal ideation, suicidal ideation Skin exam: PRESENT: dry, warm. ABSENT: cyanosis, rash Results Laboratory Results: 03/06/20 05:11 03/06/20 05:11 03/06/20 03/06/20 05:11 05:11 WBC 12.5 H RBC 2.78 L Hgb 8.7 L Hct 25.6 L MCV 92 MCH 31.2 MCHC 34.0 RDW 15.2 H Plt Count 259 Sodium 141.8 Potassium 3.7 Chloride 115 H Carbon Dioxide 23 Anion Gap 4 L BUN 30 H Creatinine 0.88 Est GFR ( Amer) > 60 Glucose 93 Calcium 8.5 03/01/20 03/01/20 03/01/20 10:54 10:54 13:21 Creatine Kinase 31 L CK-MB (CK-2) 2.34 Troponin I < 0.012 < 0.012 Impressions: Chest X-Ray 03/01/20 10:21 IMPRESSION: NO SIGNIFICANT RADIOGRAPHIC FINDING IN THE CHEST. Abdomen/Pelvis CT 03/01/20 15:00 IMPRESSION: 1. Tiny stone in the proximal left ureter without significant hydronephrosis suggested. 2. No gross bowel pathology demonstrated. Assessment and Plan - Diagnosis (1) Anemia Qualifiers: Anemia type: unspecified type Qualified Code(s): D64.9 - Anemia, unspecified Is this a current diagnosis for this admission?: Yes Plan: Acute blood loss anemia r/t diverticulitis with bleeding. Hemoglobin 8.3-> 6.7-> 11.1-> 8.0-> 9.5-> 8.7 Anemia panel shows mild iron deficiency. s/p 7 units PRBC Follow up CBC; transfuse for <8 (2) GI bleed Qualifiers: GI bleed type/associated pathology: melena Qualified Code(s): K92.1 - Melena Is this a current diagnosis for this admission?: Yes Plan: ISecondary to diverticulitis of the small intestine with perforation during colonoscopy. Now status post partial left colon resection. Occult stool positive. CT abdomen/pelvis was unremarkable. Admitted to the medical floor. Hold aspirin. Protonix twice daily. Diet per surgery. Primary plan per surgical service. (3) S/P partial colectomy Is this a current diagnosis for this admission?: Yes Plan: WBCs are trending down, remains afebrile. Pain has resolved. Primary plan per surgery. Surgery has advanced to a clear liquid diet. NG tube removed. Continue IV Metronidazole and Levaquin; day #4. Analgesics and antiemetics as needed. (4) Diverticulitis of small intestine with bleeding Is this a current diagnosis for this admission?: Yes (5) Perforation of colon as colonoscopy complication Is this a current diagnosis for this admission?: Yes (6) HTN (hypertension) Qualifiers: Hypertension type: essential hypertension Qualified Code(s): I10 - Essential (primary) hypertension Is this a current diagnosis for this admission?: Yes Plan: Blood pressures are improved Hold lisinopril for now. (7) ROSA (acute kidney injury) Is this a current diagnosis for this admission?: Yes Plan: Resolved. Prerenal r/t hypotention in setting of ABLA anemia. Significantly improved; Cr 0.88/BUN 30 today PRBC as above. Encourage fluids. Avoid nephrotoxic medications as able. Follow-up chemistry. - Time Time Spent with patient: 25-34 minutes Medications reviewed and adjusted accordingly: Yes Anticipated Discharge Disposition: Home with Home Health Anticipated Discharge Timeframe: within 48 hours
[2020-03-07] MEDS: METRONIDAZOLE 500 MG/NS RTU 500 MG/100 ML RTUPB IV SCH ×2 (00:13→06:14)
[2020-03-07 05:15] LABS: HEMATOCRIT 27.1 % (37.9-51.0); HEMOGLOBIN 9.1 g/dL (13.5-17.0); MEAN CORPUSCULAR HEMOGLOBIN 30.7 pg (27.0-33.4); MEAN CORPUSCULAR HGB CONC 33.5 g/dL (32.0-36.0); MEAN CORPUSCULAR VOLUME 92 fl (80-97); PLATELET COUNT 298 10^3/uL (150-450); RED BLOOD COUNT 2.95 10^6/uL (4.35-5.55); RED CELL DISTRIBUTION WIDTH 14.5 % (11.5-14.0); WHITE BLOOD COUNT 10.6 10^3/uL (4.0-10.5)
[2020-03-07 05:33] LABS: ANION GAP 5 (5-19); BLOOD UREA NITROGEN 22 mg/dL (7-20); CALCIUM 8.6 mg/dL (8.4-10.2); CARBON DIOXIDE 21 mmol/L (22-30); CHLORIDE 114 mmol/L (98-107); GLUCOSE 100 mg/dL (75-110); POTASSIUM 3.5 mmol/L (3.6-5.0)
[2020-03-07] MEDS ORDERED: OXYCODONE-ACETAMINOPHEN 5-325 MG TABLET PO PRN ×2 (08:22→08:31)
--- NOTE | 2020-03-07 08:25 | PDOC PROGRESS REPORT ---
Subjective Date:: 03/07/20 Reason For Visit: GI BLEED, ANEMIA Patient hungry this morning. Ambulated in the halls, voiding, tolerated full liquids yesterday. 40 to 50 cc of serous drainage in the tube Physical Exam Vital Signs: Temp Pulse Resp BP Pulse Ox 98.2 F 78 17 135/71 H 98 03/07/20 07:48 03/07/20 07:48 03/07/20 07:48 03/07/20 07:48 03/07/20 07:48 Intake & Output 03/06/20 03/07/20 03/08/20 06:59 06:59 06:59 Intake Total 3173 1556 Output Total 1330 1015 Balance 1843 541 Weight 75.1 kg 75.1 kg General appearance: PRESENT: no acute distress GI/Abdominal exam: PRESENT: other - Soft, appropriately tender. Midline elba intact; serosanguineous fluid in drain Results Laboratory Results: 03/07/20 04:58 03/07/20 04:58 03/07/20 03/07/20 04:58 04:58 WBC 10.6 H RBC 2.95 L Hgb 9.1 L Hct 27.1 L MCV 92 MCH 30.7 MCHC 33.5 RDW 14.5 H Plt Count 298 Sodium 140.3 Potassium 3.5 L Chloride 114 H Carbon Dioxide 21 L Anion Gap 5 BUN 22 H Creatinine 0.78 Est GFR ( Amer) > 60 Glucose 100 Calcium 8.6 03/01/20 03/01/20 03/01/20 10:54 10:54 13:21 Creatine Kinase 31 L CK-MB (CK-2) 2.34 Troponin I < 0.012 < 0.012 Impressions: Chest X-Ray 03/01/20 10:21 IMPRESSION: NO SIGNIFICANT RADIOGRAPHIC FINDING IN THE CHEST. Abdomen/Pelvis CT 03/01/20 15:00 IMPRESSION: 1. Tiny stone in the proximal left ureter without significant hydronephrosis suggested. 2. No gross bowel pathology demonstrated. Assessment & Plan - Diagnosis (1) GI bleed Qualifiers: GI bleed type/associated pathology: melena Qualified Code(s): K92.1 - Melena Is this a current diagnosis for this admission?: Yes Plan: Impression: Postoperative day 5 status post exploratory laparotomy, segmental jejunal and sigmoid colon resections, doing well, tolerating full liquid diet; low potassium Plan: 1. Advance diet as tolerated; add Percocet 2. Stop IV antibiotics 3. Replace potassium 4. Anticipate discharge home in the next 24 to 48 hours (2) Left lower quadrant abdominal mass Is this a current diagnosis for this admission?: Yes (3) Anemia Qualifiers: Anemia type: unspecified type Qualified Code(s): D64.9 - Anemia, unspecified Is this a current diagnosis for this admission?: Yes (4) HTN (hypertension) Qualifiers: Hypertension type: essential hypertension Qualified Code(s): I10 - Essential (primary) hypertension Is this a current diagnosis for this admission?: Yes (5) Osteoarthritis of both knees Is this a current diagnosis for this admission?: Yes - Time Anticipated Discharge Disposition: Home, Self Care Anticipated Discharge Timeframe: within 24 hours
[2020-03-07] MEDS: PANTOPRAZOLE SODIUM 40 MG VIAL IV SCH ×2 (09:34→21:10)
[2020-03-07] MEDS: POTASSI CL 20 MEQ/50 ML RIDER 20 MEQ/50 ML RTUPB IV SCH ×3 (09:35→14:53)
--- NOTE | 2020-03-07 13:33 | PDOC PROGRESS REPORT ---
Subjective Date:: 03/07/20 Subjective:: SHARITA AARON III is a 74 year old male with a past medical history significant for hypertension, mitral valve regurgitation/murmur, and anxiety who was admitted 03/01/2020 with acute blood loss anemia secondary to GI bleeding. Patient was seen on morning rounds. He is found resting in bed, comfortably, on room air. He is feeling much better today, though with increased fatigue from yesterday. He has been advanced to a regular diet by surgery. Continues to have melena bowel movements, though decreased in frequency. Chest wall and abdominal pain have resolved. He denies fever, chills, chest pain, palpitations, dyspnea, orthopnea, cough. He has no questions or concerns at this time. No concerns per nursing. Reason For Visit: GI BLEED, ANEMIA Physical Exam Vital Signs: Temp Pulse Resp BP Pulse Ox 98.3 F 79 16 131/79 H 98 03/07/20 11:02 03/07/20 11:02 03/07/20 11:02 03/07/20 11:02 03/07/20 11:02 Intake & Output 03/06/20 03/07/20 03/08/20 06:59 06:59 06:59 Intake Total 3173 1556 170 Output Total 1330 1015 Balance 1843 541 170 Weight 75.1 kg 75.1 kg General appearance: PRESENT: no acute distress, cooperative, well-developed, well-nourished Head exam: PRESENT: atraumatic, normocephalic Eye exam: PRESENT: conjunctiva pink, EOMI, PERRLA. ABSENT: scleral icterus Mouth exam: PRESENT: moist, tongue midline Respiratory exam: PRESENT: clear to auscultation dav, symmetrical, unlabored, other - Room air. ABSENT: rales, rhonchi, wheezes Cardiovascular exam: PRESENT: RRR. ABSENT: diastolic murmur, rubs, systolic murmur Pulses: PRESENT: normal dorsalis pedis pul Vascular exam: PRESENT: normal capillary refill GI/Abdominal exam: PRESENT: normal bowel sounds, soft, other - Surgical incision is intact. Serosanguineous fluid to JUAN drain.. ABSENT: distended, guarding, mass, organolmegaly, rebound, tenderness Rectal exam: PRESENT: deferred Extremities exam: PRESENT: full ROM. ABSENT: calf tenderness, clubbing, pedal edema Musculoskeletal exam: PRESENT: ambulatory Neurological exam: PRESENT: alert, awake, oriented to person, oriented to place, oriented to time, oriented to situation, CN II-XII grossly intact. ABSENT: motor sensory deficit Psychiatric exam: PRESENT: appropriate affect, normal mood. ABSENT: homicidal ideation, suicidal ideation Skin exam: PRESENT: dry, intact, warm. ABSENT: cyanosis, rash Results Laboratory Results: 03/07/20 04:58 03/07/20 04:58 03/07/20 03/07/20 04:58 04:58 WBC 10.6 H RBC 2.95 L Hgb 9.1 L Hct 27.1 L MCV 92 MCH 30.7 MCHC 33.5 RDW 14.5 H Plt Count 298 Sodium 140.3 Potassium 3.5 L Chloride 114 H Carbon Dioxide 21 L Anion Gap 5 BUN 22 H Creatinine 0.78 Est GFR ( Amer) > 60 Glucose 100 Calcium 8.6 03/01/20 03/01/20 03/01/20 10:54 10:54 13:21 Creatine Kinase 31 L CK-MB (CK-2) 2.34 Troponin I < 0.012 < 0.012 Impressions: Chest X-Ray 03/01/20 10:21 IMPRESSION: NO SIGNIFICANT RADIOGRAPHIC FINDING IN THE CHEST. Abdomen/Pelvis CT 03/01/20 15:00 IMPRESSION: 1. Tiny stone in the proximal left ureter without significant hydronephrosis suggested. 2. No gross bowel pathology demonstrated. Assessment and Plan - Diagnosis (1) Anemia Qualifiers: Anemia type: unspecified type Qualified Code(s): D64.9 - Anemia, unspecified Is this a current diagnosis for this admission?: Yes Plan: Acute blood loss anemia r/t diverticulitis with bleeding. Hemoglobin 8.3-> 6.7-> 11.1-> 8.0-> 9.5-> 8.7-> 9.1 Anemia panel shows mild iron deficiency. s/p 7 units PRBC Follow up CBC; transfuse for <8 (2) GI bleed Qualifiers: GI bleed type/associated pathology: melena Qualified Code(s): K92.1 - Melena Is this a current diagnosis for this admission?: Yes Plan: Secondary to diverticulitis of the small intestine with perforation during colonoscopy. Now status post partial left colon resection. Occult stool positive. CT abdomen/pelvis was unremarkable. Admitted to the medical floor. Hold aspirin. Protonix twice daily. Diet per surgery. Advanced to regular diet. Primary plan per surgical service. (3) S/P partial colectomy Is this a current diagnosis for this admission?: Yes Plan: WBCs are trending down, remains afebrile. Pain has resolved. Primary plan per surgery. Surgery has advanced to a clear liquid diet. NG tube removed. Continue IV Metronidazole and Levaquin; day #4. Analgesics and antiemetics as needed. (4) Diverticulitis of small intestine with bleeding Is this a current diagnosis for this admission?: Yes (5) Perforation of colon as colonoscopy complication Is this a current diagnosis for this admission?: Yes Plan: Status post partial colon resection with anastomosis. (6) HTN (hypertension) Qualifiers: Hypertension type: essential hypertension Qualified Code(s): I10 - Essential (primary) hypertension Is this a current diagnosis for this admission?: Yes Plan: Resume lisinopril (7) ROSA (acute kidney injury) Is this a current diagnosis for this admission?: Yes Plan: Resolved. Prerenal r/t hypotention in setting of ABLA anemia. PRBC as above. Encourage fluids. Avoid nephrotoxic medications as able. Follow-up chemistry. - Time Time Spent with patient: 25-34 minutes Medications reviewed and adjusted accordingly: Yes Anticipated Discharge Disposition: Home with Home Health Anticipated Discharge Timeframe: within 48 hours
[2020-03-08 05:01] LABS: HEMATOCRIT 27.8 % (37.9-51.0); HEMOGLOBIN 9.2 g/dL (13.5-17.0); MEAN CORPUSCULAR HEMOGLOBIN 30.3 pg (27.0-33.4); MEAN CORPUSCULAR VOLUME 92 fl (80-97); PLATELET COUNT 321 10^3/uL (150-450); RED BLOOD COUNT 3.03 10^6/uL (4.35-5.55); RED CELL DISTRIBUTION WIDTH 14.5 % (11.5-14.0); WHITE BLOOD COUNT 11.4 10^3/uL (4.0-10.5)
[2020-03-08 05:22] LABS: BLOOD UREA NITROGEN 17 mg/dL (7-20); CALCIUM 8.6 mg/dL (8.4-10.2); CARBON DIOXIDE 25 mmol/L (22-30); CHLORIDE 112 mmol/L (98-107); GLUCOSE 103 mg/dL (75-110); POTASSIUM 3.5 mmol/L (3.6-5.0)
[2020-03-08 05:27] LABS: ANION GAP 2 (5-19)
[2020-03-08] MEDS: LISINOPRIL 10 MG TABLET PO SCH (10:20)
[2020-03-08] MEDS: PANTOPRAZOLE SODIUM 40 MG VIAL IV SCH (10:20)
--- NOTE | 2020-03-08 11:15 | PDOC DISCHARGE SUMMARY ---
General - Admit/Disc Date/PCP Admission Date/Primary Care Provider: 03/03/20 09:53 YAHIR GARCIA MD Discharge Date: 03/08/20 - Discharge Diagnosis Final Diagnosis: 1. Gastrointestinal bleed 2. Perforated jejunal diverticula - Assessment Summary: Patient is 74-year-old white male with a history of hypertension, and acute superimposed on chronic anemia, and GI bleed. Patient was dated to the emergency department to the hospitalist service for failure to thrive, weakness, and hemoglobin of 6.7. He was transfused 2 units of packed red blood cells. He underwent CT scan of the abdomen and pelvis which revealed no significant intra-abdominal pathology. On 03/02/2020 he was taken to the operating room where he underwent colonoscopy, conversion to exploratory laparotomy, segmental jejunal resection and segmental left colon resection. He had a drain placed. Final pathology report showed perforated jejunal diverticulum. Postoperatively the patient stabilized hemodynamically and had no further bleeding. His hypokalemia was replaced. His diet was started and advanced and tolerated well. He ambulated and voided without difficulty. His wound minimal drainage, and on the fifth postoperative day his drain was removed. He was felt to receive maximum benefit from hospitalization and was discharged home. Plan: 1. Discharge home, diet as tolerated, ambulate, use incentive spirometer 2. Patient will follow-up with [facility], Dr. Casper, in 1week; he will call March 09 for appointment. 3. Patient will take Tylenol and/or Motrin as needed pain; he will resume his preoperative medications diet and activity. - Additional Information Resuscitation Status: Full Code Referrals: MIGUEL CASPER MD [ACTIVE STAFF] - 03/18/20 8:00 am Home Medications: Acetaminophen [Tylenol Arthritis 650 mg Tablet] 1 tab PO DAILYP PRN 09/19/13 Aspirin [Ecotrin 81 mg EC Tablet] 1 tab PO DAILY 09/19/13 Lisinopril 10 mg PO DAILY 09/19/13 Multivitamin [Daily Vitamin] 1 tab PO DAILY 09/19/13 History of Present Illiness History of Present Illness: SHARITA AARON III is a 74 year old male Who presents emergency department via ground rescue complaining of weakness, shortness of breath, malaise, fatigue, and increased frequency of dark bloody stools. Patient was seen by Dr. Pop 48 hours ago at [facility], with some of the above symptoms, but less severe, and was set up for outpatient upper and lower endoscopy. The patient is now being admitted to the hospitalist service for the resuscitation, possible blood transfusion, and CT scan imaging of the abdomen. He was consulted for diagnostic endoscopy. Patient is 4 and half years status post colonoscopy by Dr. Pop without any pathologic findings. Of note patient has a history of anemia of unclear etiology. Physical Exam Vital Signs: Temp Pulse Resp BP Pulse Ox 98.4 F 78 17 142/76 H 97 03/08/20 09:08 03/08/20 07:24 03/08/20 07:24 03/08/20 07:24 03/08/20 07:24 Intake & Output 03/07/20 03/08/20 03/09/20 06:59 06:59 06:59 Intake Total 1556 962 Output Total 1015 425 Balance 541 537 Weight 75.1 kg 75.1 kg Results Laboratory Results: WBC 11.4 10^3/uL (4.0-10.5) H 03/08/20 04:42 RBC 3.03 10^6/uL (4.35-5.55) L 03/08/20 04:42 Hgb 9.2 g/dL (13.5-17.0) L 03/08/20 04:42 Hct 27.8 % (37.9-51.0) L 03/08/20 04:42 MCV 92 fl (80-97) 03/08/20 04:42 MCH 30.3 pg (27.0-33.4) 03/08/20 04:42 MCHC 33.0 g/dL (32.0-36.0) 03/08/20 04:42 RDW 14.5 % (11.5-14.0) H 03/08/20 04:42 Plt Count 321 10^3/uL (150-450) 03/08/20 04:42 Lymph % (Auto) Not Reportable 03/05/20 05:36 [place] % (Auto) Not Reportable 03/05/20 05:36 Eos % (Auto) Not Reportable 03/05/20 05:36 Baso % (Auto) Not Reportable 03/05/20 05:36 Reticulocyte # 0.096 10^6/uL (0.028-0.122) 03/02/20 06:00 Absolute Neuts (auto) Not Reportable 03/05/20 05:36 Absolute Lymphs (auto) Not Reportable 03/05/20 05:36 Absolute Monos (auto) Not Reportable 03/05/20 05:36 Absolute Eos (auto) Not Reportable 03/05/20 05:36 Absolute Basos (auto) Not Reportable 03/05/20 05:36 Total Counted 100 03/05/20 05:36 Seg Neutrophils % Not Reportable 03/05/20 05:36 Seg Neuts % (Manual) 89 % (42-78) H 03/05/20 05:36 Band Neutrophils % 5 % (3-5) 03/03/20 04:46 Lymphocytes % (Manual) 4 % (13-45) L 03/05/20 05:36 Monocytes % (Manual) 7 % (3-13) 03/05/20 05:36 Eosinophils % (Manual) 0 % (0-6) 03/05/20 05:36 Basophils % (Manual) 0 % (0-2) 03/05/20 05:36 Abs Neuts (Manual) 14.8 10^3/uL (1.7-8.2) H 03/05/20 05:36 Abs Lymphs (Manual) 0.7 10^3/uL (0.5-4.7) 03/05/20 05:36 Abs Monocytes (Manual) 1.2 10^3/uL (0.1-1.4) 03/05/20 05:36 Absolute Eos (Manual) 0.0 10^3/uL (0.0-0.6) 03/05/20 05:36 Abs Basophils (Manual) 0.0 10^3/uL (0.0-0.2) 03/05/20 05:36 Nucleated RBCs 1 /100 WBC (0) 03/05/20 05:36 Toxic Granulation SLIGHT 03/02/20 22:55 Platelet Comment ADEQUATE 03/05/20 05:36 Polychromasia SLIGHT 03/05/20 05:36 Poikilocytosis SLIGHT 03/02/20 22:55 Anisocytosis SLIGHT 03/05/20 05:36 Ovalocytes SLIGHT 03/03/20 04:46 Kp Cells SLIGHT 03/02/20 22:55 Retic Count (auto) 4.01 % (0.66-2.85) H 03/02/20 06:00 PT 13.4 SEC (11.4-15.4) 03/01/20 10:54 INR 1.00 03/01/20 10:54 Sodium 138.8 mmol/L (137-145) 03/08/20 04:42 Potassium 3.5 mmol/L (3.6-5.0) L 03/08/20 04:42 Chloride 112 mmol/L (98-107) H 03/08/20 04:42 Carbon Dioxide 25 mmol/L (22-30) 03/08/20 04:42 Anion Gap 2 (5-19) L 03/08/20 04:42 BUN 17 mg/dL (7-20) 03/08/20 04:42 Creatinine 0.70 mg/dL (0.52-1.25) 03/08/20 04:42 Est GFR ( Amer) > 60 (>60) 03/08/20 04:42 Est GFR (Non-Af Amer) Cancelled 03/03/20 22:04 Est GFR (MDRD) Non-Af > 60 (>60) 03/08/20 04:42 Glucose 103 mg/dL (75-110) 03/08/20 04:42 Calcium 8.6 mg/dL (8.4-10.2) 03/08/20 04:42 Iron 45.4 ug/dL (49-181) L 03/02/20 06:00 TIBC 285 ug/dL (250-450) 03/02/20 06:00 % Saturation 16 % 03/02/20 06:00 Ferritin 26.40 ng/mL (17.9-464.0) 03/02/20 06:00 Total Bilirubin 0.5 mg/dL (0.2-1.3) 03/04/20 04:34 Direct Bilirubin 0.0 mg/dL (0.0-0.4) 03/04/20 04:34 Neonat Total Bilirubin Not Reportable 03/04/20 04:34 Neonat Direct Bilirubin Not Reportable 03/04/20 04:34 Neonat Indirect Bili Not Reportable 03/04/20 04:34 AST 119 U/L (17-59) H 03/04/20 04:34 ALT 121 U/L (<50) H 03/04/20 04:34 Alkaline Phosphatase 22 U/L (38-126) L 03/04/20 04:34 Creatine Kinase 31 U/L (55-170) L 03/01/20 10:54 CK-MB (CK-2) 2.34 ng/mL (<4.55) 03/01/20 10:54 Troponin I < 0.012 ng/mL 03/01/20 13:21 Total Protein 3.7 g/dL (6.3-8.2) L 03/04/20 04:34 Albumin 1.9 g/dL (3.5-5.0) L 03/04/20 04:34 Lipase 123.7 U/L (23-300) 03/01/20 10:54 EGFR Cancelled 03/03/20 22:04 Vitamin B12 307.0 pg/mL (239-931) 03/02/20 06:00 Folate 16.00 ng/mL (>2.76) 03/02/20 06:00 Urine Color YELLOW 03/01/20 10:54 Urine Appearance SLIGHTLY-CLOUDY 03/01/20 10:54 Urine pH 5.0 (5.0-9.0) 03/01/20 10:54 Ur Specific Stone 1.017 03/01/20 10:54 Urine Protein NEGATIVE mg/dL (NEGATIVE) 03/01/20 10:54 Urine Glucose (UA) NEGATIVE mg/dL (NEGATIVE) 03/01/20 10:54 Urine Ketones NEGATIVE mg/dL (NEGATIVE) 03/01/20 10:54 Urine Blood MODERATE (NEGATIVE) H 03/01/20 10:54 Urine Nitrite NEGATIVE (NEGATIVE) 03/01/20 10:54 Urine Bilirubin NEGATIVE (NEGATIVE) 03/01/20 10:54 Urine Urobilinogen NEGATIVE mg/dL (<2.0) 03/01/20 10:54 Ur Leukocyte Esterase NEGATIVE (NEGATIVE) 03/01/20 10:54 Urine WBC (Auto) 4 /HPF 03/01/20 10:54 Urine RBC (Auto) 67 /HPF 03/01/20 10:54 Squamous Epi Cells Auto <1 /HPF 03/01/20 10:54 Urine Mucus (Auto) RARE /LPF 03/01/20 10:54 Urine Ascorbic Acid 40 (NEGATIVE) H 03/01/20 10:54 Stool Occult Blood POSITIVE (NEGATIVE) 03/01/20 21:10 Influenza A (RT-PCR) NEGATIVE (NEGATIVE) 03/01/20 12:45 Influenza B (RT-PCR) NEGATIVE (NEGATIVE) 03/01/20 12:45 RSV (RT-PCR) NEGATIVE (NEGATIVE) 03/01/20 12:45 SARS-CoV-2 Rap RNA(RT-PCR) NEGATIVE (NEGATIVE) 03/01/20 12:45 Blood Type O POSITIVE 03/04/20 09:06 Blood Type Confirm O POSITIVE 03/01/20 10:54 Antibody Screen NEGATIVE 03/04/20 09:06 Crossmatch See Detail 03/04/20 09:06 03/01/20 03/01/20 10:54 13:21 CK-MB (CK-2) 2.34 Troponin I < 0.012 < 0.012 Impressions: Chest X-Ray 03/01/20 10:21 IMPRESSION: NO SIGNIFICANT RADIOGRAPHIC FINDING IN THE CHEST. Abdomen/Pelvis CT 03/01/20 15:00 IMPRESSION: 1. Tiny stone in the proximal left ureter without significant hydronephrosis suggested. 2. No gross bowel pathology demonstrated.
--- NOTE | 2020-03-08 11:51 | PDOC PROGRESS REPORT ---
Subjective Date:: 03/08/20 Subjective:: SHARITA AARON III is a 74 year old male with a past medical history significant for hypertension, mitral valve regurgitation/murmur, and anxiety who was admitted 03/01/2020 with acute blood loss anemia secondary to GI bleeding. Patient was seen on morning rounds. He is found resting in bed, comfortably, on room air. He is feeling well today; tolerating a regular diet and having bowel movements. Independently ambulatory and with minimal pain. Looking forward to discharge today. He denies fever, chills, chest pain, palpitations, dyspnea, orthopnea, cough. He has no questions or concerns at this time. No concerns per nursing. Reason For Visit: GI BLEED, ANEMIA Physical Exam Vital Signs: Temp Pulse Resp BP Pulse Ox 98.4 F 78 17 142/76 H 97 03/08/20 09:08 03/08/20 07:24 03/08/20 07:24 03/08/20 07:24 03/08/20 07:24 Intake & Output 03/07/20 03/08/20 03/09/20 06:59 06:59 06:59 Intake Total 1556 962 Output Total 1015 425 Balance 541 537 Weight 75.1 kg 75.1 kg General appearance: PRESENT: no acute distress, cooperative, well-developed, well-nourished Head exam: PRESENT: atraumatic, normocephalic Eye exam: PRESENT: conjunctiva pink, EOMI, PERRLA. ABSENT: scleral icterus Mouth exam: PRESENT: moist, tongue midline Respiratory exam: PRESENT: clear to auscultation dav, symmetrical, unlabored, other - room air. ABSENT: rales, rhonchi, wheezes Cardiovascular exam: PRESENT: RRR. ABSENT: diastolic murmur, rubs, systolic murmur Vascular exam: PRESENT: normal capillary refill GI/Abdominal exam: PRESENT: normal bowel sounds, soft, other - Surgical incision is intact; JUAN drain removed. ABSENT: distended, guarding, mass, organolmegaly, rebound, tenderness Extremities exam: PRESENT: full ROM. ABSENT: calf tenderness, clubbing, pedal edema Musculoskeletal exam: PRESENT: ambulatory Neurological exam: PRESENT: alert, awake, oriented to person, oriented to place, oriented to time, oriented to situation, CN II-XII grossly intact. ABSENT: motor sensory deficit Psychiatric exam: PRESENT: appropriate affect, normal mood. ABSENT: homicidal ideation, suicidal ideation Skin exam: PRESENT: dry, intact, warm. ABSENT: cyanosis, rash Results Laboratory Results: 03/08/20 04:42 03/08/20 04:42 03/08/20 03/08/20 04:42 04:42 WBC 11.4 H RBC 3.03 L Hgb 9.2 L Hct 27.8 L MCV 92 MCH 30.3 MCHC 33.0 RDW 14.5 H Plt Count 321 Sodium 138.8 Potassium 3.5 L Chloride 112 H Carbon Dioxide 25 Anion Gap 2 L BUN 17 Creatinine 0.70 Est GFR ( Amer) > 60 Glucose 103 Calcium 8.6 03/01/20 03/01/20 03/01/20 10:54 10:54 13:21 Creatine Kinase 31 L CK-MB (CK-2) 2.34 Troponin I < 0.012 < 0.012 Impressions: Chest X-Ray 03/01/20 10:21 IMPRESSION: NO SIGNIFICANT RADIOGRAPHIC FINDING IN THE CHEST. Abdomen/Pelvis CT 03/01/20 15:00 IMPRESSION: 1. Tiny stone in the proximal left ureter without significant hydronephrosis suggested. 2. No gross bowel pathology demonstrated. Assessment and Plan - Diagnosis (1) Anemia Qualifiers: Anemia type: unspecified type Qualified Code(s): D64.9 - Anemia, unspecified Is this a current diagnosis for this admission?: Yes Plan: Acute blood loss has resolved. Hgb now trending up. Acute blood loss anemia r/t diverticulitis with bleeding. Hemoglobin 8.3-> 6.7-> 11.1-> 8.0-> 9.5-> 8.7-> 9.1-> 9.2 Anemia panel shows mild iron deficiency. s/p 7 units PRBC (2) GI bleed Qualifiers: GI bleed type/associated pathology: melena Qualified Code(s): K92.1 - Melena Is this a current diagnosis for this admission?: Yes Plan: Resolved. Secondary to diverticulitis of the small intestine with perforation during colonoscopy. Now status post partial left colon resection. Occult stool positive. CT abdomen/pelvis was unremarkable. continue to hold aspirin x30 days; do not resume until cleared by surgery and PCP. Protonix daily x30 days. Advanced to regular diet. Cleared for discharge per surgical service. (3) S/P partial colectomy Is this a current diagnosis for this admission?: Yes Plan: WBCs are trending down, remains afebrile. Pain has resolved. Received IV Metronidazole and Levaquin x5 days. (4) Diverticulitis of small intestine with bleeding Is this a current diagnosis for this admission?: Yes (5) Perforation of colon as colonoscopy complication Is this a current diagnosis for this admission?: Yes Plan: Status post partial colon resection with anastomosis. (6) HTN (hypertension) Qualifiers: Hypertension type: essential hypertension Qualified Code(s): I10 - Essential (primary) hypertension Is this a current diagnosis for this admission?: Yes Plan: Resume lisinopril (7) ROSA (acute kidney injury) Is this a current diagnosis for this admission?: Yes Plan: Resolved. Prerenal r/t hypotention in setting of ABLA anemia. PRBC as above. Encourage fluids. - Plan Summary Summary: Per D/C Summary by Dr. Aleman: Patient is 74-year-old white male with a history of hypertension, and acute superimposed on chronic anemia, and GI bleed. Patient was dated to the emergency department to the hospitalist service for failure to thrive, weakness, and hemoglobin of 6.7. He was transfused 2 units of packed red blood cells. He underwent CT scan of the abdomen and pelvis which revealed no significant intra-abdominal pathology. On 03/02/2020 he was taken to the operating room where he underwent colonoscopy, conversion to exploratory laparotomy, segmental jejunal resection and segmental left colon resection. He had a drain placed. Final pathology report showed perforated jejunal diverticulum. Postoperatively the patient stabilized hemodynamically and had no further bleeding. His hypokalemia was replaced. His diet was started and advanced and tolerated well. He ambulated and voided without difficulty. His wound minimal drainage, and on the fifth postoperative day his drain was removed. He was felt to receive maximum benefit from hospitalization and was discharged home. Plan: 1. Discharge home, diet as tolerated, ambulate, use incentive spirometer 2. Patient will follow-up with [place] [facility], Dr. Serrano, in 1week; he will call March 09 for appointment. 3. Patient will take Tylenol and/or Motrin as needed pain; he will resume his preoperative medications diet and activity. - Time Time Spent with patient: 15-24 minutes Medications reviewed and adjusted accordingly: Yes Anticipated Discharge Disposition: Home with Home Health Anticipated Discharge Timeframe: Now
[2020-03-08 11:52] VITALS: BP 126/63
== END 2020-03-08 12:42 | disposition home or self-care (01) | DRG 330 ==
LOC: ER 09:53 → INTOOBSV 12:43 → EH 12:43 → 4N 15:42 → OBSVTOIN 03-03 09:53
PROVIDERS: ADMIT Internal Medicine; ATTEND Registered Nurse
PROC: 30233N1 Transfusion of Nonautologous Red Blood Cells into Peripheral Vein, Percutaneous Approach (ICD-10-PCS; 2020-03-01)
PROC: 0DB68ZX Excision of Stomach, Via Natural or Artificial Opening Endoscopic, Diagnostic (ICD-10-PCS; 2020-03-02)
PROC: 0DJD8ZZ Inspection of Lower Intestinal Tract, Via Natural or Artificial Opening Endoscopic (ICD-10-PCS; 2020-03-02)
PROC: 0DTG0ZZ Resection of Left Large Intestine, Open Approach (ICD-10-PCS; principal; 2020-03-02 13:30)
PROC: 0DBA0ZZ Excision of Jejunum, Open Approach (ICD-10-PCS; 2020-03-02 13:30)
PROC: 0DNA0ZZ Release Jejunum, Open Approach (ICD-10-PCS; 2020-03-02 13:30)
DX: K57.01 Diverticulitis of small intestine with perforation and abscess with bleeding (principal); D62 Acute posthemorrhagic anemia; N17.9 Acute kidney failure, unspecified; K91.71 Accidental puncture and laceration of a digestive system organ or structure during a digestive system procedure; K66.0 Peritoneal adhesions (postprocedural) (postinfection); D64.9 Anemia, unspecified; E87.6 Hypokalemia; K29.70 Gastritis, unspecified, without bleeding; Z96.653 Presence of artificial knee joint, bilateral; I10 Essential (primary) hypertension; I34.0 Nonrheumatic mitral (valve) insufficiency; Y65.8 Other specified misadventures during surgical and medical care; F41.1 Generalized anxiety disorder; Z79.82 Long term (current) use of aspirin; Z79.899 Other long term (current) drug therapy; Z88.2 Allergy status to sulfonamides; Z20.828 Contact with and (suspected) exposure to other viral communicable diseases; Z53.31 Laparoscopic surgical procedure converted to open procedure
CPT/HCPCS: 00790; 36415; 36430; 43239; 45378; 71045; 74177; 80048; 80053; 81001; 82272; 82550; 82553; 82607; 82728; 82746; 83540; 83550; 83690; 84484; 85025; 85027; 85045; 85610; 86850; 86900; 86901; 86920; 87070; 88305; 88307; 88342; 93005; 93010; 96360; 96361; 99140; 99285; 0241U; C1758; C9113; C9803; G0378; J0131; J0171; J0690; J1100; J1610; J1885; J1956; J2270; J2310; J2370; J2405; J2704; J3010; J3480; J3490; J7030; J7120; P9016